=== PATIENT | female | born 1955 | race Two or more races ===

== ENCOUNTER 2025-02-17 08:50 | Inpatient (IN) | payer MEDICARE, BC ==
[2025-02-13 13:26] LABS: Hematocrit 37.1 % (36.0-46.0); Hemoglobin 12.5 g/dL (12.2-16.2); Mean Corpuscular Hemoglobin 30.2 pg (28.0-32.0); Mean Corpuscular Volume 89.5 fL (80.0-100.0); Nucleated Red Blood Cells % 0.1 %
[2025-02-13 13:32] LABS: INR 0.91 (0.9-1.15); Partial Thromboplastin Time 25.9 SEC (24.5-34.5); Prothrombin Time 9.7 sec (9.3-11.8)
[2025-02-13 13:38] LABS: Alanine Aminotransferase 13 U/L (7-40); Albumin 4.4 g/dL (3.2-4.8); Alkaline Phosphatase 55 U/L (46-116); Anion Gap 16 (5-15); BUN/Creatinine Ratio 17.2 (10.0-20.0); Glucose 75 mg/dL (74-106); Potassium 4.7 mmol/L (3.5-5.1); Sodium 141 mmol/L (136-145); Total Protein 7.3 g/dL (5.7-8.2)
[2025-02-13 13:42] LABS: Bilirubin, Total 0.2 mg/dL (0.2-1.0); Blood Urea Nitrogen 31 mg/dL (9-23); Calcium 10.6 mg/dL (8.7-10.4); Carbon Dioxide 16 mmol/L (20-31); Chloride 109 mmol/L (98-107)
[2025-02-13 14:44] LABS: Urine Protein, UAD Negative (Negative)
[~2025-02-17] VITALS: Ht 162.6 cm; Wt 114.5 kg
[~2025-02-17 08:50] MED LIST: ASPI81CH59 PO; GLIP10TA9 PO; HYDR50TA47 PO; INSLANTI SC; INSLISPI SC; LATA0.008 EACHEYE; LEVO-848 PO; LOSA-534 PO; METF-372 PO; METO-289 PO; OMEP20TA PO; TRIA50CA43 PO
--- NOTE | 2025-02-17 11:16 | DVHHP2 ---
Admitting Diagnosis: lumbar spinal stenosis with neurogenic claudication History of Present Illness Home Meds Reported Medications Latanoprost (LATANOPROST) 0.005 % Desirae, 1 DROP EACHEYE QPM, #2.5 ML 3 Refills 02/13/25 Levothyroxine Sodium (SYNTHROID TABLET) 50 Mcg Tb, 75 MCG PO DAILY, TAB 02/13/25 Triamterene (Triamterene) 50 Mg Cap, 50 MG PO DAILY, CAP 02/13/25 Metoprolol Succinate (Metoprolol Succinate Er) 50 Mg Tab, 100 MG PO DAILY, TAB 02/13/25 Hydralazine Hcl (Hydralazine Hcl) 50 Mg Tab, 25 MG PO BID, TAB 02/13/25 Losartan Potassium (Losartan Potassium) 50 Mg Tab, 1 TAB PO DAILY, #90 TAB 3 Refills 02/13/25 Glipizide (Glipizide) 10 Mg Tab, 1 TAB PO BID, #180 TAB 3 Refills 02/13/25 Metformin Hydrochloride (Metformin Hcl) 1,000 Mg Tab, 1 TAB PO BID, #180 TAB 3 Refills 02/13/25 Insulin Glargine (Lantus) 100 Unit/Ml Inj, 100 UNIT SC DAILY, INJ 02/13/25 Insulin Lispro (Human) (Humalog) 100 Unit/Ml Inj, 100 UNIT SC BID, INJ 02/13/25 Omeprazole (Gnp Omeprazole) 20 Mg Tab, 1 TAB PO DAILY, #90 TAB 3 Refills 02/13/25 Aspirin (Aspirin Low Dose) 81 Mg Chw, 1 TAB PO DAILY, #90 TAB 3 Refills 02/13/25 Timing/Duration of Back Pain: Constant Quality of Back Pain: Aching, Burning, Cramping, Dullness Back Pain Location: Lumbar spine Back Pain Radiation: Feet, Lower legs Method of Injury/Prior Factors: Unknown Modifying Factors for Back Trupti: Movement Associated Symptoms of Back Pa: Sensory loss, Motor loss Review of Systems Ears, Nose, & Throat: No symptom reported Eyes: No symptom reported Pulmonary/Respiratory: No symptom reported Cardiovascular: No symptom reported Gastrointestinal: No symptom reported Genitourinary: No symptom reported Musculoskeletal: Back pain, Joint pain, Muscle pain Skin: No symptom reported Psychiatric: No symptom reported Endocrine: No symptom reported Hemotologic/Lymphatic: No symptom reported H&P Exam General Appeara: Well developed, Well nourished, Normal Appearance Head Exam: Normal inspection Neck Exam: Normal inspection, Non-tender, Normal alignment Eye Exam: bilateral eye Normal inspection, bilateral eye PERRL, bilateral eye EOMI Ear Exam: bilateral ear Auricle normal, bilateral ear Canal normal, bilateral ear TM normal Nasal Exam: Normal inspection Mouth: Normal Inspection Pulmonary/Respiratory: Normal inspection, Normal breath sounds, Chest non- tender, Lungs clear Cardiovascular/Chest: Normal inspection, Regular rate, Normal Rhythm Abdominal Exam: Normal bowel sounds Rectal Exam: Deferred Back Exam: Decreased range of motion, Muscle spasm, Vertebral tenderness Pelvic Exam: Not done Male Genital Exam: Not done Shoulder Exam: Normal inspection, Non-tender, Normal ROM Elbow/Forearm Exam: Normal inspection, Non-tender, Normal ROM Wrist Exam: Normal inspection, Non-tender, Normal ROM Hand Exam: Normal inspection, Non-tender, Normal ROM Hip exam: Normal inspection, Non-tender, Normal range of motion Legs: bilateral leg non-tender, bilateral leg normal inspection, bilateral leg normal range of motion, bilateral leg no evidence of injury Knees: bilateral knee non-tender, bilateral knee normal inspection, bilateral knee normal range of motion, bilateral knee no evidence of injury Ankle Exam: bilateral ankle Normal inspection, bilateral ankle Non-tender, bilateral ankle Normal range of motion, bilateral ankle No evidence of injury Foot: bilateral foot non-tender, bilateral foot normal inspection, bilateral foot normal range of motion, bilateral foot no evidence of injury Tendon/ Neuro: Motor deficit, Sensory deficit MANAGER MERCHANDISE Exam: Normal hearing, Normal speech, PERRL Motor/Sensory: Sensory deficit, Weak motor strength RLE, Weak motor strength LLE Deep Tendon Ref: All intact Neuro/Mental St: Alert, Oriented Appearance: Appropriate appearance, Appropriate insight Eye contact/ Speech: Cooperative, Good eye contact, Normal speech Coordination/Gait: Abnormal gait Skin Exam: Normal inspection, Normal color, Warm/dry Lymphatic: Normal inspection Labs/Xrays Labs Test 02/13/25 14:37 02/13/25 12:59 Range/Units Urine Color Colorless Yellow Urine Clarity Clear Clear Urine pH 5.5 5.0-9.0 Urine Specific Mercer 1.008 1.001-1.035 Urine Protein Negative Negative Urine Ketones Negative Negative Urine Blood Negative Negative /uL Urine Nitrite Negative Negative Urine Bilirubin Negative Negative Urine Urobilinogen Normal Negative mg/dL Urine Leukocyte Esterase Negative Negative /uL Urine RBC <1 0 - 4 /hpf Urine Microscopic WBC < 1 0-5 /HPF Urine Squamous Epithelial Cells None seen <5 /hpf Urine Bacteria None seen None Seen /hpf Urine Glucose Normal Normal mg/dL White Blood Count 8.1 4.4-10.8 10^3/uL Red Blood Count 4.14 4.0-5.20 10^6/uL Hemoglobin 12.5 12.2-16.2 g/dL Hematocrit 37.1 36.0-46.0 % Mean Corpuscular Volume 89.5 80.0-100.0 fL Mean Corpuscular Hemoglobin 30.2 28.0-32.0 pg Mean Corpuscular Hemoglobin Concent 33.7 32.0-36.0 g/dL Red Cell Distribution Width 14.8 H 11.8-14.3 % Platelet Count 356 140-450 10^3/uL Mean Platelet Volume 8.9 6.9-10.8 fL Neutrophils (%) (Auto) 70.4 37.0-80.0 % Lymphocytes (%) (Auto) 21.1 10.0-50.0 % Monocytes (%) (Auto) 6.5 0.0-12.0 % Eosinophils (%) (Auto) 1.4 0.0-7.0 % Basophils (%) (Auto) 0.6 0.0-2.0 % Neutrophils # (Auto) 5.7 1.6-8.6 10 ^3/uL Lymphocytes # (Auto) 1.7 0.4-5.4 10 ^3/uL Monocytes # (Auto) 0.5 0-1.3 10 ^3/uL Eosinophils # (Auto) 0.1 0-0.8 10 ^3/uL Basophils # (Auto) 0.1 0-0.2 10 ^3/uL Nucleated Red Blood Cells 0.1 % Prothrombin Time 9.7 9.3-11.8 sec Prothrombin Time INR 0.91 0.9-1.15 Activated Partial Thromboplast Time 25.9 24.5-34.5 SEC Sodium Level 141 136-145 mmol/L Potassium Level 4.7 3.5-5.1 mmol/L Chloride Level 109 H 98-107 mmol/L Carbon Dioxide Level 16 L 20-31 mmol/L Anion Gap 16 H 5-15 Blood Urea Nitrogen 31 H 9-23 mg/dL Creatinine 1.80 H 0.550-1.02 mg/dL Glomerular Filtration Rate Calc 30 >90 mL/min BUN/Creatinine Ratio 17.2 10.0-20.0 Serum Glucose 75 74-106 mg/dL Calcium Level 10.6 H 8.7-10.4 mg/dL Total Bilirubin 0.2 0.2-1.0 mg/dL Aspartate Amino Transferase (AST) 16 13-40 U/L Alanine Aminotransferase (ALT) 13 7-40 U/L Alkaline Phosphatase 55 46-116 U/L Total Protein 7.3 5.7-8.2 g/dL Albumin 4.4 3.2-4.8 g/dL Assessment/Plan Primary Diagnosis lumbar spinal stenosis with severe neurogenic claudication Plan admit for elective lumbar spine surgery Plan discussed with: Patient BETTY LUGO MD Feb 17, 2025 11:16
[2025-02-17] MEDS ORDERED: fentaNYL CITRATE 100 MCG/2 ML VL ONE (12:28)
[2025-02-17] MEDS ORDERED: PROPOFOL 10 MG/ML 20 ML IV ONE ×2 (12:28→13:40)
[2025-02-17] MEDS ORDERED: MIDAZOLAM HCL 2MG/2ML 2ml VIAL (1mg/ml) ONE (12:28)
[2025-02-17] MEDS ORDERED: ROCURONIUM 10MG/ML 10ML VIAL IV ONE (12:28)
[2025-02-17] MEDS ORDERED: ONDANSETRON HCL 4 MG/2 ML VIAL ONE (12:36)
[2025-02-17] MEDS ORDERED: METOCLOPRAMIDE HCL 5MG/ml INJ 2ml VIAL ONE (12:36)
[2025-02-17] MEDS ORDERED: fentaNYL CITRATE 5 ML ONE (13:36)
[2025-02-17] MEDS ORDERED: HYDROmorphone HCL 2 MG/ML VL/or syr ONE (16:00)
[2025-02-17] MEDS ORDERED: MORPHINE SULFATE INJ 2 MG/ml SYRG IV PRN (16:15)
[2025-02-17] MEDS ORDERED: ACETAMINOPHEN 325 MG TAB PO PRN (16:15)
[2025-02-17] MEDS ORDERED: NITROGLYCERIN 0.4 MG SL TAB SL PRN (16:15)
--- NOTE | 2025-02-17 16:27 | DVHOP2 ---
Operative Report - 2 Report Details Date: 02/17/25 Preop Diagnosis: Post laminectomy syndrome lumbar spine wiwth severe lumbar spinal stenosis/retained spinal hardware Postop Diagnosis: same as pre op Surgeon: Maximino Taylor MD Oil Producer: Flro Hickman NP Anesthesiologist: Keesha Edwards NP Anesthesia: General Consent: The patient was informed of the risks and benefits of the procedure. These include but are not limited to complications of anesthesia, postoperative infection, incomplete relief of symptoms, recurrence of symptoms, damage to blood vessels, nerves and tendons, deep venous thrombosis, pulmonary embolism and possible need for repeat surgery in the future. Name of Procedure Performed see detailed note Procedure Details Procedure Details: Pre-op Diagnosis: 1. 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 Severe Lumbar 3/4 central canal stenosis with low back pain and incapacitating neurogenic claudication 3. Retained deep painful hardware lumbar spine Post-op Diagnosis: same as pre-op Procedure: Revision lumbar 5 laminotomies/foraminotomies/facetectomies to decompress central canal and lumbar 5 nerve roots bilaterally Revision lumbar 4 laminotomies, foraminotomies/facetectomies to decompress central canal and lumbar 4 nerve roots bilaterally lumbar 3 laminectomy with foraminotomies and facetectomies to decompress central canal and bilateral lumbar 3 nerve roots Lumbar 3 to 4 posterior spinal interbody fusion with PEEK cage. Lumbar 3 to 4 posterior spinal intertransverse fusion with bone graft Lumbar 3 to 4 posterior spinal instrumentation with pedicle screws Autograft bone for fusion Allograft bone to augment fusion Demineralized bone matrix to augment fusion Microscope for microdissection Removal of Deep spinal hardware lumbar spine Exploration of prior lumbar fusion Surgeon: Dr. Taylor Assist: Flor Hickman NP Anesthesia: General Fluids and EBL: See anesthesia note The patient was seen in the pre-anesthesia care unit (PACU), and I initialed the operative site. All questions were answered to the patients satisfaction, and the chart was reviewed. The patient was taken to the operative room, where pre- operative antibiotics were given 30 minutes before incision. General anesthesia was induced, and neuro-monitoring leads were placed. A Khan catheter was placed. The patient was turned prone onto the [facility] spinal table. While positioning, I ensured that the belly was free to allow proper expansion of the lungs. The hips were extended, and all bony prominences padded. The shoulders were abducted 80 degrees, and the elbows flexed 100 degrees with no tension on the brachial plexus. I checked the foot arterial pulses, and they were palpable. The old surgical scar was marked with a marker before prepping and draping. The patient was prepped and draped, and time out was taken at this time per usual protocol. At this time, the C-arm fluoroscope was brought in and was used to maninder the incision borders proximally and distally. I used the prior lumbar incision as a guide and extended proximally and distally as required per the marking determined from the fluoroscopy Using a Number 10 Blade, an incision was made extending it proximally and dist ally per C arm maninder from the posterior spinous process of the lumbar three down to lumbar 5, down to the lumbo-dorsal fascia. All bleeding was controlled with electrocautery. Self-retaining retractors were placed. The bleeding was not excessive considering it was a revision case. Electrocautery was then used to take down the lumbo-dorsal fascia to free the muscle off the bone bilaterally where the tissue was virgin. A Dashawn retractor was placed over the posterior spinous process proximally, and a lateral C-arm fluoroscope image was taken to ensure we were at the correct level. Next, dissection through the prior surgical site was started at virgin tissue, and the deep back muscles were taken down as deep as possible while avoiding getting too close to the dura and avoiding being too shallow to cause nerve injury and bleeding. Next, using bovie electrocautery, The deep fascia laterally to the facet joints was removed to expose the transverse processes of lumbar 3, 4, and 5 while taking care to avoid injuring the facet capsule at the proximal end of the incision. Next the prior bilateral lumbar 4/5 pedicle screw construct was exposed. The screws were removed without difficulty with universal hardware removal set. Care had to be taken during the xposure to remove the cross link to avid causing damage to the dur Next, the microscope was bought in for visualization, and using a Luxell rongeur, the posterior spinous process of lumbar three and remnants of lumbar 4 and 5 were removed, and the bone was saved for use as local autograft. I used alternating Kerison 2 mm and 3 mm rongeurs to perform lumbar 3,4 and 5 and bilateral laminotomies, foraminotomies and facetectomies to revise the decompression of the central canal and lateral recesses and foramen to decompre ss the bilateral lumbar 3,4,5 nerve roots and central canal. Next, using alternating Kerison 2mm and 3 mm rongeurs, the superior articular facets of lumbar three were removed bilaterally at the virgin dissection to decompress the lateral recess (facetectomies) and then extended proximally to decompress the foramen bilaterally (foraminotomies). Next, carefully, straight and curved curettes were used to free up the dura from residual lamina left from the prior surgeries, and version 2mm and 3 mm longueurs removed the remaining lamina (revision laminotomies). the prior surgery attempted david-laminectomies on the left Lumbar 4 and laminae, and this is where severe post-op epidural fibrosis was noted and had to be dealt with. the central canal stenosis was severe at the L4/5 level from the large superior articular facet making the medial lateral space narrow, the left over ligamentum flavum which was narrowing the anterior posterior plane. The same situation was seen at the L5 lamina. Therefore, the superior facets of L4 and 5 bilaterally were removed as was the residual ligamentum flavum removed very carefully to avoid damage to the neural structures. Everything went as planned and we were able to successfully decompress the L4/5 level which were severely stenosed prior to the surgery . Next, the 2mm and 3mm Kerison rongeurs a second time were used to undercut the supra-articular facets and widened the foramina in the lumbar 4 and 5 levels. I used a ball-tipped nerve probe to ensure that the respective nerve roots were able to be mobilized 5mm in each direction and were unimpeded in the lateral recess and foramen. Next, I carefully inspected the dura to make sure no durotomy was visible, and it was not. This decompression was very tedious and dangerous due to the fibrosis. I covered the exposed dura with gel foam soaked in thrombin, and the microscope was wheeled away from the operative field. The C-arm fluoroscope was brought in, and perfect AP views of the lumbar 3 and 4 pedicles were obtained. I placed bilateral pedicle screws at this level by: using a Lenke awl to make a car pilot hole, then a ball tip robe to make sure there was no pedicle breach, then a tap to prepare the track, and a 6.5 mm diameter 45 mm length pedicle screw at L3 and 6.5 X50 at L4 This step to place bilateral pedicle screws was repeated up to the lumbar 3, 4, levels. Next, the c-arm fluoroscope took an AP and lateral x-ray to ensure proper placement of the pedicle screws. Next, I retracted the right lumbar 4 nerve medially and used increasing size juancarlos until the proper tension achieved and placed a [id number] PEEK cage at the L3/4 level. Next, the neuro-stimulation probe was placed over the tip of each screw, and each screw was stimulated only after a current greater than 10 mA was delivered to the screw. Next, I took a Midas Jaya Drill to decorticate the transverse process, which was exposed, and local bone graft, allograft bone substitute, and Demineralized bone matrix were placed along the intertransverse process intervals bilaterally (the fusion bed). Next, a curved qasim sized to fit the pedicle screw interval was placed and secured to each pedicle screw using set screws, The set screws were tightened using a torque screwdriver (set to 10 N*M torque) to secure the qasim to the pedicle screws bilaterally. Final AP and lateral C arm fluoroscopic films were taken at this time. Next, a 10-Scottish diameter Hemovac drain was laced deep to the lumbo-dorsal fascia. The lumbo- dorsal fascia was closed with interrupted 0-Vicryl sutures. The subcutaneous tissue was closed with interrupted 2-0 Vicryl sutures. The skin was closed with a 2-0 nylon subcuticular suture. Sterile dressings were placed. The pt. was turned supine onto the stretcher, extubated, and taken to the recovery room in stable condition. Condition Stable Disposition Still a Patient MAXIMINO TAYLOR MD Feb 17, 2025 16:27
[2025-02-17 16:43] VITALS: PULSE 95; RESP 12; O2SAT 98
[2025-02-17] MEDS: ACETAMINOPHEN IV 1000 MG/100ML (10MG/ML) IV ONE (16:54)
[2025-02-17] MEDS ORDERED: HYDROmorphone HCL 2 MG/ML VL/or syr IV PRN (17:00)
[2025-02-17] MEDS: ONDANSETRON HCL 4 MG/2 ML VIAL IV PRN (17:10)
[2025-02-17 17:45] VITALS: PULSE 95; RESP 16; O2SAT 95
--- NOTE | 2025-02-17 18:28 | DVH ---
Indication: FUSION AND DISCECTOMY Technique: XY LUMBAR SPINE 3 VIEWXY Comparison: None FINDINGS/IMPRESSION: Intraoperative radiographs for Posterior intrapedicular fixation at approximately L3/L4 with interbod y disc spacer.
[2025-02-17 18:50] VITALS: BP 128/63; PULSE 105; RESP 17; TEMP 97.8; O2SAT 98
--- NOTE | 2025-02-17 18:51 | DVH ---
C-ARM FLUOROSCOPY: PROCEDURE: Lumbar spine procedure FLUOROSCOPY TIME: 62.7 seconds DAP: 53.5 mgy FINDINGS: Spot intraoperative C arm radiographs demonstrating lumbar spine procedure. IMPRESSION: 1. Intraoperative radiographs for Posterior intrapedicular fixation at approximately L3/L4 with inter body disc spacer.
[2025-02-17 19:01] VITALS: PULSE 88; RESP 20; O2SAT 98
[2025-02-17] MEDS: D5W/SOD CHLO 0.9% 1,000 ML IV SCH (19:04)
[2025-02-17] MEDS: ceFAZolin 2 GM/D5W50ml 50 ML IV ONE (19:05)
[2025-02-17] MEDS: TRANEXAMIC ACID 20 ML ONE (19:05)
[2025-02-17] MEDS: KETOROLAC TROMETH 30 MG/ML 1ML VIAL IV ONE (19:05)
[2025-02-17] MEDS: SUCCINYLCHOLINE CHLORIDE 20 MG/ML 10ML VIAL IV ONE (19:05)
[2025-02-17] MEDS: ONDANSETRON HCL 4 MG/2 ML VIAL ONE (19:05)
[2025-02-17] MEDS: PNEUMOCOCCAL VACC POLYS 25 MCG/0.5 ML VIAL IM ONE (19:45)
[2025-02-17 20:00] VITALS: PULSE 102; PULSE 104; RESP 17; O2SAT 97
[2025-02-17 21:00] VITALS: BP 135/63; PULSE 104; RESP 17; TEMP 97.9; O2SAT 97
[2025-02-17] MEDS ORDERED: DEXTROSE (50%) 50ML SYRG IV PRN ×2 (21:15→22:00)
[2025-02-17] MEDS: CYCLOBENZAPRINE HCL 10 MG TAB PO SCH (21:45)
[2025-02-17] MEDS: DOCUSATE SOD 100 MG CAP PO SCH (21:45)
[2025-02-17] MEDS: InsuLIN REG 1unit/0.01ml Soln (100units/ml) SC SCH (21:48)
[2025-02-17] MEDS: ceFAZolin 1GM/50ML 50 ML IV SCH (21:49)
[2025-02-17] MEDS: ACCU-CHEK COMFORT CURVE STRIP VI SCH (21:55)
[2025-02-17] MEDS: HYDROcodone-ACET 10/325MG TAB PO PRN (23:32)
[2025-02-18] VITALS (7 sets, daily range): BP systolic 122–154; BP diastolic 65–72; PULSE 80–114; RESP 17–19; TEMP 97.8–98.5; O2SAT 92–99
[2025-02-18] MEDS ORDERED: ACCU-CHEK COMFORT CURVE STRIP VI SCH
[2025-02-18] MEDS ORDERED: DEXTROSE (50%) 50ML SYRG IV PRN (02:00)
[2025-02-18] MEDS: ACCU-CHEK COMFORT CURVE STRIP VI SCH (04:00)
[2025-02-18] MEDS: InsuLIN REG 1unit/0.01ml Soln (100units/ml) SC SCH (04:14)
[2025-02-18] MEDS ORDERED: InsuLIN REG 1unit/0.01ml Soln (100units/ml) SC SCH ×2 (07:00)
[2025-02-18 08:35] LABS: Hematocrit 30.2 % (36.0-46.0); Hemoglobin 9.8 g/dL (12.2-16.2); Mean Corpuscular Hemoglobin 29.8 pg (28.0-32.0); Mean Corpuscular Volume 91.5 fL (80.0-100.0); Nucleated Red Blood Cells % 0.1 %
[2025-02-18 08:44] LABS: Chloride 101 mmol/L (98-107); Potassium 4.6 mmol/L (3.5-5.1)
[2025-02-18 08:45] LABS: Anion Gap 12 (5-15); Carbon Dioxide 20 mmol/L (20-31)
[2025-02-18 08:50] LABS: BUN/Creatinine Ratio 16.0 (10.0-20.0)
[2025-02-18 09:08] LABS: Blood Urea Nitrogen 29 mg/dL (9-23); Calcium 8.6 mg/dL (8.7-10.4); Sodium 133 mmol/L (136-145)
[2025-02-18 09:09] LABS: Glucose 471 mg/dL (74-106)
[2025-02-18] MEDS: TRIAMTERENE/HCTZ 37.5/25 MG CAP/TAB PO SCH (10:00)
--- NOTE | 2025-02-18 10:22 | DVHINCON2 ---
Date of service: Feb 18, 2025 History of Present Illness HPI Patient is a 69-year-old female who came to hospital for elective lumbar laminectomy. Orthopedics has performed a laminectomy and the patient is being managed on tele floor. Cardiology is involved for cardiac aspects of care. Patient is known to our practice from outside and before. Home Meds Reported Medications Latanoprost (LATANOPROST) 0.005 % Desirae, 1 DROP EACHEYE QPM, #2.5 ML 3 Refills 02/13/25 Levothyroxine Sodium (SYNTHROID TABLET) 50 Mcg Tb, 75 MCG PO DAILY, TAB 02/13/25 Triamterene (Triamterene) 50 Mg Cap, 50 MG PO DAILY, CAP 02/13/25 Metoprolol Succinate (Metoprolol Succinate Er) 50 Mg Tab, 100 MG PO DAILY, TAB 02/13/25 Hydralazine Hcl (Hydralazine Hcl) 50 Mg Tab, 25 MG PO BID, TAB 02/13/25 Losartan Potassium (Losartan Potassium) 50 Mg Tab, 1 TAB PO DAILY, #90 TAB 3 Refills 02/13/25 Glipizide (Glipizide) 10 Mg Tab, 1 TAB PO BID, #180 TAB 3 Refills 02/13/25 Metformin Hydrochloride (Metformin Hcl) 1,000 Mg Tab, 1 TAB PO BID, #180 TAB 3 Refills 02/13/25 Insulin Glargine (Lantus) 100 Unit/Ml Inj, 100 UNIT SC DAILY, INJ 02/13/25 Insulin Lispro (Human) (Humalog) 100 Unit/Ml Inj, 100 UNIT SC BID, INJ 02/13/25 Omeprazole (Gnp Omeprazole) 20 Mg Tab, 1 TAB PO DAILY, #90 TAB 3 Refills 02/13/25 Aspirin (Aspirin Low Dose) 81 Mg Chw, 1 TAB PO DAILY, #90 TAB 3 Refills 02/13/25 Past Medical History Others Past medical history includes obesity, diabetes mellitus, hypertension, hyperlipidemia, hypothyroidism, low back pain, osteopenia/osteoporosis, GERD, glaucoma, CKD (goes to Nephrology/Dr. De La Torre regularly) and history of left breast cancer in 1998 (status post chemotherapy/radiation therapy) Patient Family History: Chronic obstructive pulmonary disease G8 FATHER G8 BROTHER Diabetes mellitus G8 MOTHER FH: cancer G8 SISTER FH: emphysema G8 FATHER FH: kidney disease Glaucoma G8 BROTHER Hypertension G8 MOTHER Smoker: No Hx (Negative) Alocohol: None Review of Systems Constitutional: No symptom reported Ears, Nose, & Throat: No symptom reported Eyes: No symptom reported All Other Systems Fourteen point review of system was performed. Relevant findings as per above and as per HPI. Otherwise negative. H&P Exam Vital Signs Vital Signs Date Time Temp Pulse Resp B/P (MAP) Pulse Ox O2 Delivery O2 Flow Rate FiO2 02/18/25 09:06 98.5 109 19 135/67 (89) 92 98.5 02/17/25 20:00 Nasal Cannula* 2 28 General Appeara: Well developed, Obese Head Exam: Normal inspection Neck Exam: Normal inspection Eye Exam: bilateral eye PERRL Mouth: Normal Inspection Pulmonary/Respiratory: Lungs clear Cardiovascular/Chest: Regular rate Peripheral Pulses: 2+ carotid (R), 2+ carotid (L), 2+ femoral (R), 2+ femoral (L) Abdominal Exam: Normal bowel sounds, Soft, No hepatospenomegaly Neuro/Mental St: Alert, Oriented Appearance: Appropriate appearance Eye contact/ Speech: Cooperative Labs/Xrays Labs Test 02/18/25 08:22 02/18/25 08:13 02/17/25 19:55 02/13/25 14:37 Range/Units POC Glucose 391 H 70-106 mg/dl White Blood Count 9.1 4.4-10.8 10^3/uL Red Blood Count 3.30 L 4.0-5.20 10^6/uL Hemoglobin 9.8 #L 12.2-16.2 g/dL Hematocrit 30.2 #L 36.0-46.0 % Mean Corpuscular Volume 91.5 80.0-100.0 fL Mean Corpuscular Hemoglobin 29.8 28.0-32.0 pg Mean Corpuscular Hemoglobin Concent 32.5 32.0-36.0 g/dL Red Cell Distribution Width 15.0 H 11.8-14.3 % Platelet Count 276 140-450 10^3/uL Mean Platelet Volume 8.7 6.9-10.8 fL Neutrophils (%) (Auto) 83.1 H 37.0-80.0 % Lymphocytes (%) (Auto) 8.2 L 10.0-50.0 % Monocytes (%) (Auto) 8.0 0.0-12.0 % Eosinophils (%) (Auto) 0.0 0.0-7.0 % Basophils (%) (Auto) 0.7 0.0-2.0 % Neutrophils # (Auto) 7.5 1.6-8.6 10 ^3/uL Lymphocytes # (Auto) 0.7 0.4-5.4 10 ^3/uL Monocytes # (Auto) 0.7 0-1.3 10 ^3/uL Eosinophils # (Auto) 0 0-0.8 10 ^3/uL Basophils # (Auto) 0.1 0-0.2 10 ^3/uL Nucleated Red Blood Cells 0.1 % Sodium Level 133 #L 136-145 mmol/L Potassium Level 4.6 3.5-5.1 mmol/L Chloride Level 101 98-107 mmol/L Carbon Dioxide Level 20 20-31 mmol/L Anion Gap 12 5-15 Blood Urea Nitrogen 29 H 9-23 mg/dL Creatinine 1.81 H 0.550-1.02 mg/dL Glomerular Filtration Rate Calc 30 >90 mL/min BUN/Creatinine Ratio 16.0 10.0-20.0 Serum Glucose 471 *H 74-106 mg/dL Calcium Level 8.6 L 8.7-10.4 mg/dL Urine Color Colorless Yellow Urine Clarity Clear Clear Urine pH 5.5 5.0-9.0 Urine Specific [place] 1.008 1.001-1.035 Urine Protein Negative Negative Urine Ketones Negative Negative Urine Blood Negative Negative /uL Urine Nitrite Negative Negative Urine Bilirubin Negative Negative Urine Urobilinogen Normal Negative mg/dL Urine Leukocyte Esterase Negative Negative /uL Urine RBC <1 0 - 4 /hpf Urine Microscopic WBC < 1 0-5 /HPF Urine Squamous Epithelial Cells None seen <5 /hpf Urine Bacteria None seen None Seen /hpf Urine Glucose Normal Normal mg/dL Test 02/13/25 12:59 Range/Units Prothrombin Time 9.7 9.3-11.8 sec Prothrombin Time INR 0.91 0.9-1.15 Activated Partial Thromboplast Time 25.9 24.5-34.5 SEC Total Bilirubin 0.2 0.2-1.0 mg/dL Aspartate Amino Transferase (AST) 16 13-40 U/L Alanine Aminotransferase (ALT) 13 7-40 U/L Alkaline Phosphatase 55 46-116 U/L Total Protein 7.3 5.7-8.2 g/dL Albumin 4.4 3.2-4.8 g/dL Assessment/Plan Plan Patient is a 69-year-old female who came to hospital for elective lumbar laminectomy. Orthopedics has performed a laminectomy and the patient is being managed on tele floor. Cardiology is involved for cardiac aspects of care. Patient is known to our practice from outside and before. Not in acute distress. Lying flat in bed. No JVD. Obese. No carotid bruit. Mucosa is pink and wet. Not using accessory muscles of breathing. Lungs are clear to auscultation. Cardiac: Regular, no thrill/gallop. Abdomen is soft. There is no mass. Bowel sound is positive. Nontender. Extremities do not reveal edema. Dorsalis pedis is 2+ bilateral Past medical history includes obesity, diabetes mellitus, hypertension, hyperlipidemia, hypothyroidism, low back pain, osteopenia/osteoporosis, GERD, glaucoma, CKD (goes to Nephrology/Dr. De La Torre regularly) and history of left breast cancer in 1998 (status post chemotherapy/radiation therapy) Echocardiogram of January 2025 (performed in [facility]) was poor quality and left ventricular systolic function could not be completely evaluated. There was no aortic stenosis Echocardiogram of December 2023 (performed in the office) revealed preserved left ventricular systolic function and no valvular disease. Hemoglobin: 12.5 Creatinine: 1.8 Potassium: 4.7 Patient is a obese female who presented for elective lumbar laminectomy (performed). Does have above comorbidities. Hemodynamically is stable. Does have baseline history of CKD for which follows with Nephrology regularly Status post lumbar laminectomy Diabetes mellitus Obesity, morbid Hypertension Hyperlipidemia CKD Hypothyroidism Lumbar stenosis Cardiac suggestion for management: Manage on tele Follow-up electrolytes and kidney function tests and correct abnormalities. Echocardiogram is advised Follow-up by Orthopedics Rehab evaluation and follow-up Thank you for consultation Further evaluation and management depends on the above and clinical course A total of 75 minutes was spent reviewing the patient record, examining the patient, making a diagnostic and therapeutic plan, discussing this plan with medical personnel, following up on diagnostic studies and following the patient for clinical stability excluding any and all procedures. At least 50% of this time was spent in direct, [id number] contact. Thank you for allowing me to participate in this patient's care. Further recommendations will depend on patient's clinical course. Please do not hesitate to contact me if you have any questions or concerns. This medical document was created using electronic medical record system with [employer] computerized dictation system. Although this document has been carefully reviewed, there may still be some phonetic and typographical errors. These areas are purely typographical due to the imperfection of the software programs, and do not reflect any compromise in the patient's medical care. Plan discussed with: Patient, Other (nurse) THOR HAMLIN MD Feb 18, 2025 10:22
--- NOTE | 2025-02-18 10:29 | DVHPN2 ---
Progress Note - Surgical Date Seen: Feb 18, 2025 Post op day Post op day: 1 Subjective Patient reports: No new complaints, Feels better Review of Systems: NEURO:Abnormal (LBP radiation down both legs to the feet ) Objective Vital signs Vital Sign Date Time Temp Pulse Resp B/P (MAP) Pulse Ox O2 Delivery O2 Flow Rate FiO2 02/18/25 09:06 98.5 109 19 135/67 (89) 92 98.5 02/17/25 20:00 Nasal Cannula* 2 28 Total Intake and Output 02/17/25 02/17/25 02/18/25 15:00 23:00 07:00 Intake Total 110 ml 50 ml 900 ml Balance 110 ml 50 ml 900 ml Medications Current Medications Medications Dose Ordered Sig/Diann Route Start Time Stop Time Status Last Admin Dose Admin Ondansetron HCl 4 mg Q4HP PRN IV 02/17/25 16:15 Acetaminophen 650 mg Q6HP PRN PO 02/17/25 16:15 Acetaminophen/ Hydrocodone Bitart 1 tab Q6HP PRN PO 02/17/25 16:15 02/18/25 08:46 1 TAB Morphine Sulfate 1 mg Q4HP PRN IV 02/17/25 16:15 Cyclobenzaprine HCl 10 mg TID PO 02/17/25 22:00 02/18/25 05:47 10 MG Docusate Sodium 100 mg BID PO 02/17/25 22:00 02/18/25 08:44 100 MG Cefazolin Sodium 50 ml @ 100 mls/hr Q8HR IV 02/17/25 22:00 02/19/25 14:29 02/18/25 05:44 100 MLS/HR Nitroglycerin 0.4 mg Q5MINP PRN SL 02/17/25 16:15 Morphine Sulfate 2 mg Q30M PRN IV 02/17/25 16:15 Diagnostic Test (Pha) 1 strip IQ4HR 02/18/25 04:00 02/18/25 08:54 1 STRIP Insulin Human Regular IQ4HR SC 02/18/25 04:00 02/18/25 08:53 15 UNITS Dextrose 50 ml UD PRN IV 02/18/25 02:00 Hydralazine HCl 25 mg Q12HR PO 02/18/25 10:00 Losartan Potassium 50 mg DAILY PO 02/18/25 10:00 Metoprolol Succinate 100 mg DAILY PO 02/18/25 10:00 Famotidine 20 mg DAILY PO 02/18/25 10:00 Triamterene/HCTZ 2 cap DAILY PO 02/18/25 10:00 Levothyroxine Sodium 50 mcg QAM@0600 PO 02/19/25 06:00 Insulin Glargine 40 units HS SC 02/18/25 22:00 UNV Laboratory Laboratory Tests 02/18/25 08:13 Test 02/18/25 08:13 Range/Units Serum Glucose 471 *H 74-106 mg/dL Examination: GENERAL:Normal, HEENT:Normal, NECK:Normal, LUNGS:Normal, CVS:Normal, ABDOMEN:Normal, MSK:Normal, SKIN:Normal (Teofilo dressing is intact drains one into are intact), NEURO:Abnormal (Patient verbalized improvement in the pain to her lower back with radiation down to bilateral legs, patient states that her feet still feel numb.), :Normal Problem List/Assessment/Plan Problems: (1) Muscle spasm of back (2) Acute post-operative pain Assessment and Plan drain output 100 ml drain #! 10ml drain #2 0ml Patient was able to get up and ambulate with physical therapy out into the hallway with a walker Family member verbalize the patient looked more stable than she has ever in the past Patient has not had a bowel movement yet, patient is tolerating eating and drinking well Patient is experiencing expected postoperative pain to the low back well controlled with pain medication, oral minimal requirements for IV intervention We will keep the drains in another day, patient is progressing well POD # 1 -Disposition: -Pending -Discharge RX: Patient has already picked up postoperative medications -Follow up appointment: with Dr Taylor on prior scheduled appointment [id number] [facility] [address] [place] [address] -Pain: - IV pain meds post op day 1, with PO supplementation, goal is to progress weaning off IV medications and control pain with PO only. morphine 1mg q 4 hours (PAIN 7-10) - P.O. analgesics:Tylenol 650MG (PAIN 1-3) [place] 10/325 mg (PAIN 4-6) - Muscle relaxers scheduled administration. This is a beneficial medications for the incisional pain as it is mostly related to muscle spasms. Flexeril 10 mg TID - Cepacol throat lozenges as needed for sore throat -Antibiotics Operative recommendations: -Postoperative dose:-Post operative antibiotics cefazolin 1 g IV piggyback every 8 hours x 48 hours total of 6 doses -DVT PPX: -Hold all chemical DVT/ blood thinners for 14 days postoperatively -use mechanical DVT PPX such as SCD's, ambulation -Activity: -Pending PT evaluation and patients progression -Sit at side of bed for meals -Goal: Ambulate independently and safely (may use assistive devices if needed) -Medical Therapy goals: -Afebrile- Patient may develop a expected post operative fever by day 2-3, this may not be accompanied with a elevation in WBC. if fever develops: Acetaminophen for fever. Albuterol nebulizer Tx every 12 hours for 24 hours to facilitate adequate lung expansion and prevent development of atelectasis. -Euglycemic: bloods sugars under 130mmol/L for optimal healing -Normotensive: Avoid events of hypertension. This helps to keep post operative healing intact and avoids destabilization of beneficial hemostatic coagulation. -Lumbar: -If patient is comfortable encouraged the patient to lay on their side to facilitate wound healing -Drains: -Hemovac drains: These will be to full compression unless otherwise ordered. Please record and document output AND characteristic of fluid present independently EVERY 6 hours more often as needed. if there in no output indicate this by documenting 0ml. If output is greater than 100 ml in one hour of kaleb blood call provider. These drains will be removed once the drainage is at a acceptable level (generally less than 100ml in 24 hours) -Teofilo dressing: This will stay in place and will be removed at the patients follow up visit. Nursing is to assess the seal and power source. The seal should be intact and the power source should have a green flashing light indicating it is functioning well. Batteries can last up to 14 days. If a leak develops the dressing edges can be reinforced with a Tegaderm dressing to reestablish intact seal. The Teofilo dressing is NOT a wound vac. This does not get changed, it does not need home health management. -Record output independently, drain 1. Is a deep drain and drain 2. Is a superficial drain. Wound drainage is described by type, color, amount, and odor. Drainage can be 1 Serous: Clear and thin, may be present in healing healthy wound. 2 Serosanguineous containing blood may also be present and healthy healing wound 3. Sanguinous primarily blood 4. Purulent this is thick, white, and pus like. It may be indicated to give of a infection and should constitute a call to the provider immediately with the plan that the sample should be cultured. -Khan: discontinued in OR -Dressings Take care not to disrupt the TEOFILO dressing seal. If there is a break in the seal it can be trouble shot with a Tegaderm dressing. -Dressing to Hemovac drains may be changed once the drains have been removed by the provider. -Bowel management: -Colace 100mg bid -Diet: -Clear liquid diet and advance as patient tolerates within dietary limitations ( example: diabetic, Cardiac) -Incentive Spirometer: -10 x hour while awake, RN please educate and observe repeat demonstration, have IS at bedside POD #1 -X-rays: - none indicated at this time -Consults: -Physical Therapy evaluation, treatment recommendations, and discharge recommendations Call with questions Inocencia Mir [facility]- Orthopaedic Spine Surgery nurse practitioner For Dr Alin Taylor Patient was examined, chart reviewed, labs evaluated, and diagnostic studies and findings analyzed. Case was discussed with Dr. Maximino Taylor who formulated the plan of care. This medical document was created using an electronic medical record system with [employer] dictation system. Although this document has been carefully reviewed, there might still be some phonetic and typographical errors. These areas are purely typographical due to imperfections of the software programs, and do not reflect any compromise in the patient's medical care. Plan discussed with Plan discussed with: Patient, Other (Tiffany DONG extension [phone]) Visit Coding Surgery Date of Service if different f: Feb 17, 2025 Billing Provider: LUKASZ MIR NP Surgery Visit Codes: NOT BILLABLE LUKASZ MIR NP Feb 18, 2025 10:29
[2025-02-18] MEDS: METOPROLOL SUCCINATE XL 50 MG TAB PO SCH (10:40)
[2025-02-18] MEDS: FAMOTIDINE 20 MG TAB PO SCH (10:41)
[2025-02-18] MEDS: LOSARTAN POTASSIUM 50 MG TAB PO SCH (10:45)
--- NOTE | 2025-02-18 10:47 | DVHINCON2 ---
Date Seen: Feb 18, [address] LUGO Family History: Chronic obstructive pulmonary disease G8 FATHER G8 BROTHER Diabetes mellitus G8 MOTHER FH: cancer G8 SISTER FH: emphysema G8 FATHER FH: kidney disease Glaucoma G8 BROTHER Hypertension G8 MOTHER Allergies: Coded Allergies: NO KNOWN ALLERGIES (Unverified , 02/13/25) Home Meds Reported Medications Latanoprost (LATANOPROST) 0.005 % Desirae, 1 DROP EACHEYE QPM, #2.5 ML 3 Refills 02/13/25 Levothyroxine Sodium (SYNTHROID TABLET) 50 Mcg Tb, 75 MCG PO DAILY, TAB 02/13/25 Triamterene (Triamterene) 50 Mg Cap, 50 MG PO DAILY, CAP 02/13/25 Metoprolol Succinate (Metoprolol Succinate Er) 50 Mg Tab, 100 MG PO DAILY, TAB 02/13/25 Hydralazine Hcl (Hydralazine Hcl) 50 Mg Tab, 25 MG PO BID, TAB 02/13/25 Losartan Potassium (Losartan Potassium) 50 Mg Tab, 1 TAB PO DAILY, #90 TAB 3 Refills 02/13/25 Glipizide (Glipizide) 10 Mg Tab, 1 TAB PO BID, #180 TAB 3 Refills 02/13/25 Metformin Hydrochloride (Metformin Hcl) 1,000 Mg Tab, 1 TAB PO BID, #180 TAB 3 Refills 02/13/25 Insulin Glargine (Lantus) 100 Unit/Ml Inj, 100 UNIT SC DAILY, INJ 02/13/25 Insulin Lispro (Human) (Humalog) 100 Unit/Ml Inj, 100 UNIT SC BID, INJ 02/13/25 Omeprazole (Gnp Omeprazole) 20 Mg Tab, 1 TAB PO DAILY, #90 TAB 3 Refills 02/13/25 Aspirin (Aspirin Low Dose) 81 Mg Chw, 1 TAB PO DAILY, #90 TAB 3 Refills 02/13/25 Current Medications Current Medications Medications (Trade) Dose Ordered Sig/Diann Route PRN Reason Start Time Stop Time Status Last Admin Dextrose/Sodium Chloride 1,000 ml @ 100 mls/hr Q10H IV 02/17/25 16:15 02/17/25 21:57 DC 02/17/25 19:04 Ondansetron HCl (Zofran) 4 mg Q4HP PRN IV NAUSEA / VOMITING 02/17/25 16:15 Acetaminophen (Tylenol Tablet) 650 mg Q6HP PRN PO MILD PAIN (1-3 PAIN SCALE) 02/17/25 16:15 Acetaminophen/ Hydrocodone Bitart ([place] 10/325MG Tab) 1 tab Q6HP PRN PO MODERATE PAIN (4-6 PAIN SCALE) 02/17/25 16:15 02/18/25 08:46 Morphine Sulfate 1 mg Q4HP PRN IV SEVERE PAIN (7-10 PAIN SCALE) 02/17/25 16:15 Cyclobenzaprine HCl (Flexeril Tablet) 10 mg TID PO 02/17/25 22:00 02/18/25 05:47 Docusate Sodium (Colace Capsule) 100 mg BID PO 02/17/25 22:00 02/18/25 08:44 Cefazolin Sodium 50 ml @ 100 mls/hr Q8HR IV 02/17/25 22:00 02/19/25 14:29 02/18/25 05:44 Nitroglycerin (Ntrostat Sublingual) 0.4 mg Q5MINP PRN SL FOR CHEST PAIN 02/17/25 16:15 Morphine Sulfate 2 mg Q30M PRN IV FOR CHEST PAIN 02/17/25 16:15 Ondansetron HCl (Zofran) 4 mg ONCE PRN IV NAUSEA / VOMITING 02/17/25 17:00 02/17/25 17:05 DC 02/17/25 17:10 Hydromorphone HCl (Dilaudid Injection) 0.5 mg Q10M PRN IV SEVERE PAIN (7-10 PAIN SCALE) 02/17/25 17:00 02/17/25 17:41 DC Diagnostic Test (Pha) (Accu-Chek Comfort Curve T) 1 strip ACHS 02/17/25 22:00 02/17/25 21:57 DC 02/17/25 21:55 Insulin Human Regular (InsuLIN R) HS SC 02/17/25 22:00 02/17/25 21:57 DC 02/17/25 21:48 Insulin Human Regular (InsuLIN R) AC SC 02/18/25 07:00 02/17/25 22:17 DC Dextrose 50 ml UD PRN IV Blood Sugar LESS THAN 60 02/17/25 21:15 02/17/25 22:17 DC Diagnostic Test (Pha) (Accu-Chek Comfort Curve T) 1 strip Q6HR 02/18/25 00:00 02/18/25 01:50 DC Insulin Human Regular (InsuLIN R) Q6HR SC 02/18/25 00:00 02/18/25 01:50 DC Dextrose 50 ml UD PRN IV Blood Sugar LESS THAN 60 02/17/25 22:00 02/18/25 01:50 DC Diagnostic Test (Pha) (Accu-Chek Comfort Curve T) 1 strip IQ4HR 02/18/25 04:00 02/18/25 08:54 Insulin Human Regular (InsuLIN R) IQ4HR SC 02/18/25 04:00 02/18/25 08:53 Dextrose 50 ml UD PRN IV Blood Sugar LESS THAN 60 02/18/25 02:00 Hydralazine HCl (Apresoline Tablet) 25 mg Q12HR PO 02/18/25 10:00 02/18/25 10:40 Insulin Glargine (Lantus) 60 units HS SC 02/18/25 22:00 02/18/25 10:14 DC Losartan Potassium (Cozaar Tablet) 50 mg DAILY PO 02/18/25 10:00 02/18/25 10:45 Metoprolol Succinate (Toprol Xl) 100 mg DAILY PO 02/18/25 10:00 02/18/25 10:40 Famotidine (Pepcid Tablet) 20 mg DAILY PO 02/18/25 10:00 02/18/25 10:41 Triamterene/HCTZ (Dyazide 37.5/ 25MG Capsule) 2 cap DAILY PO 02/18/25 10:00 Levothyroxine Sodium (Synthroid Tablet) 50 mcg QAM@0600 PO 02/19/25 06:00 Insulin Glargine (Lantus) 40 units HS SC 02/18/25 22:00 UNV Vital Signs Vital Signs Date Time Temp Pulse Resp B/P (MAP) Pulse Ox O2 Delivery O2 Flow Rate FiO2 02/18/25 10:45 135/67 02/18/25 10:40 109 02/18/25 09:06 98.5 19 92 98.5 02/17/25 20:00 Nasal Cannula* 2 28 Labs/Diagnostic Data Labs Test 02/18/25 08:22 02/18/25 08:13 02/17/25 19:55 02/13/25 14:37 Range/Units POC Glucose 391 H 70-106 mg/dl White Blood Count 9.1 4.4-10.8 10^3/uL Red Blood Count 3.30 L 4.0-5.20 10^6/uL Hemoglobin 9.8 #L 12.2-16.2 g/dL Hematocrit 30.2 #L 36.0-46.0 % Mean Corpuscular Volume 91.5 80.0-100.0 fL Mean Corpuscular Hemoglobin 29.8 28.0-32.0 pg Mean Corpuscular Hemoglobin Concent 32.5 32.0-36.0 g/dL Red Cell Distribution Width 15.0 H 11.8-14.3 % Platelet Count 276 140-450 10^3/uL Mean Platelet Volume 8.7 6.9-10.8 fL Neutrophils (%) (Auto) 83.1 H 37.0-80.0 % Lymphocytes (%) (Auto) 8.2 L 10.0-50.0 % Monocytes (%) (Auto) 8.0 0.0-12.0 % Eosinophils (%) (Auto) 0.0 0.0-7.0 % Basophils (%) (Auto) 0.7 0.0-2.0 % Neutrophils # (Auto) 7.5 1.6-8.6 10 ^3/uL Lymphocytes # (Auto) 0.7 0.4-5.4 10 ^3/uL Monocytes # (Auto) 0.7 0-1.3 10 ^3/uL Eosinophils # (Auto) 0 0-0.8 10 ^3/uL Basophils # (Auto) 0.1 0-0.2 10 ^3/uL Nucleated Red Blood Cells 0.1 % Sodium Level 133 #L 136-145 mmol/L Potassium Level 4.6 3.5-5.1 mmol/L Chloride Level 101 98-107 mmol/L Carbon Dioxide Level 20 20-31 mmol/L Anion Gap 12 5-15 Blood Urea Nitrogen 29 H 9-23 mg/dL Creatinine 1.81 H 0.550-1.02 mg/dL Glomerular Filtration Rate Calc 30 >90 mL/min BUN/Creatinine Ratio 16.0 10.0-20.0 Serum Glucose 471 *H 74-106 mg/dL Calcium Level 8.6 L 8.7-10.4 mg/dL Urine Color Colorless Yellow Urine Clarity Clear Clear Urine pH 5.5 5.0-9.0 Urine Specific [place] 1.008 1.001-1.035 Urine Protein Negative Negative Urine Ketones Negative Negative Urine Blood Negative Negative /uL Urine Nitrite Negative Negative Urine Bilirubin Negative Negative Urine Urobilinogen Normal Negative mg/dL Urine Leukocyte Esterase Negative Negative /uL Urine RBC <1 0 - 4 /hpf Urine Microscopic WBC < 1 0-5 /HPF Urine Squamous Epithelial Cells None seen <5 /hpf Urine Bacteria None seen None Seen /hpf Urine Glucose Normal Normal mg/dL Test 02/13/25 12:59 Range/Units Prothrombin Time 9.7 9.3-11.8 sec Prothrombin Time INR 0.91 0.9-1.15 Activated Partial Thromboplast Time 25.9 24.5-34.5 SEC Total Bilirubin 0.2 0.2-1.0 mg/dL Aspartate Amino Transferase (AST) 16 13-40 U/L Alanine Aminotransferase (ALT) 13 7-40 U/L Alkaline Phosphatase 55 46-116 U/L Total Protein 7.3 5.7-8.2 g/dL Albumin 4.4 3.2-4.8 g/dL Assessment SEE DICTATED NOTE Plan discussed with: Patient, Daughter Date of Service: Feb 18, 2025 Billing Provider: YANN GOLDSTEIN MD Common Visit Codes: [id number] INP/OBS CARE (HIGH) YANN GOLDSTEIN MD Feb 18, 2025 10:47
[2025-02-18 10:51] LABS: Hepatitis B Surface Antigen Negative (Negative)
[2025-02-18 11:03] LABS: Hepatitis C Antibody Negative (Negative)
--- NOTE | 2025-02-18 11:49 | DVHINCON2 ---
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 The patient at this time denies any significant back pain. No chest pain, no shortness of breath, no nausea or vomiting. No fever or cough. REVIEW OF SYSTEMS: Review of rest of systems are otherwise currently negative. PAST MEDICAL HISTORY: Significant for diabetes, hypertension, hypothyroidism, and chronic kidney disease. MEDICATIONS: She takes Lantus insulin, regular insulin, glipizide, aspirin, losartan, levothyroxine, metformin, metoprolol, and Dyazide. ALLERGIES: No known drug allergies. SOCIAL HISTORY: Denies smoking or alcohol. Lives at home with her daughter. FAMILY HISTORY: Negative. PHYSICAL EXAMINATION: GENERAL: The patient is awake, alert. VITAL SIGNS: Temperature of 97.9, pulse 109 per minute, blood pressure 143/70. SHEENT: Unremarkable. NECK: There is no JVD. LUNGS: Lungs are equal bilaterally. No added sounds. CARDIOVASCULAR: No pedal edema. S1 and S2 is regular. There is tachycardia. ABDOMEN: Soft. There is no organomegaly. NEUROLOGIC: The patient is nonfocal. MUSCULOSKELETAL: There are drains at the site of the lumbar spine surgery. ASSESSMENT AND PLAN: * Diabetes mellitus, for which the patient will be continued on Lantus and sliding scale insulin. * Morbid obesity. * Hypertension for which she will continue on her home medication. * Hypothyroidism. * Anemia. * CKD stage 3B. 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 MD CYNDIE Qiu/ZACK TID: [id number] RECEIPT: [id number]
--- NOTE | 2025-02-18 17:03 | DVHSR ---
APPROVED REPORT EXAM: LIMITED Two-dimensional and M-mode echocardiogram with Doppler and color Doppler. Blood Pressure: 135/67 mmHg INDICATION HTN/DM RISK FACTORS Obesity: Height: 5' 4", Weight: 256 DIMENSIONS LVDd3.0 (3.8-5.7cm)LA (2D)3.9 (1.9-4.0cm)Aortic Root3.2 (2.0-3.7cm) LVDs2.1 (2.5-4.0cm)LA (MM) (1.9-4.0cm)Aortic Cusp Exc1.4 (1.5-2.0cm) EF (%) 57.0 (55-70%)Rt. Atrium4.4 (1.9-4.0cm)Asc. Aorta cm IVSd1.9 (0.7-1.1cm)RV (D) (1.8-2.4cm) PWd1.2 (0.7-1.1cm) Mitral Valve MitralMitral Stenosis E wave1.00m/sMV Mean GR.mmHg A wave1.10m/sMV Peak GR.mmHg E/A ratio0.92D MVAcm2 Aortic Valve Aortic ValveAortic Stenosis V11.40m/Abdirahman Mean GR.8mmHg V21.90m/Abdirahman Peak GR.15mmHg LVOT Diameter2.3 (1.8-2.4cm)Doppler AVA3.06cm2 Pulmonic Valve V21.10m/s Tricuspid Valve TR Velocity1.90m/s [id number] Other Information Quality : Technically LimitedRhythm : Technically limited study due to body habitus, patient had back surgery yesterday and can not turn o r move. Conclusion Technically limited study secondary to poor acoustic windows. Left ventricle: Mild concentric left ventricular hypertrophy was seen. LVEF was 55-60%. There was no gross wall motion abnormality. Diastolic function of left ventricle was considered normal Right ventricle was not well visualized. Right atrium was mildly dilated. Left atrium was normal-si zed. Aortic valve was not well visualized. There was no aortic insufficiency/stenosis. There was trace m itral/tricuspid regurgitation. Pulmonary valve was not well visualized. As there was no good tricuspid regurgitation jet, right ventricular systolic pressure could not be es timated. There was no echocardiographic evidence for pulmonary hypertension.
[2025-02-18] MEDS: MORPHINE SULFATE INJ 2 MG/ml SYRG IV PRN (21:42)
[2025-02-18] MEDS ORDERED: PHENYLEPHRINE HCL 10 MG/ML VL IV ONE (21:48)
[2025-02-18] MEDS: INSULIN LANTUS (GLARGINE) 1 /0.01ml (100units/ml) SC SCH (21:55)
[2025-02-18] MEDS ORDERED: INSULIN LANTUS (GLARGINE) 1 /0.01ml (100units/ml) SC SCH (22:00)
[2025-02-19] VITALS (8 sets, daily range): BP systolic 103–161; BP diastolic 62–91; PULSE 85–100; RESP 13–18; TEMP 97.3–98.6; O2SAT 94–97
[2025-02-19] MEDS: ONDANSETRON HCL 4 MG/2 ML VIAL IV PRN (01:12)
[2025-02-19] MEDS: LEVOTHYROXINE SODIUM 50 MCG TAB PO SCH (05:54)
[2025-02-19 05:57] LABS: Hematocrit 31.4 % (36.0-46.0); Hemoglobin 10.3 g/dL (12.2-16.2); Mean Corpuscular Hemoglobin 30.0 pg (28.0-32.0); Mean Corpuscular Volume 91.5 fL (80.0-100.0); Nucleated Red Blood Cells % 0.1 %
[2025-02-19 06:13] LABS: Alanine Aminotransferase 12 U/L (7-40); Alkaline Phosphatase 55 U/L (46-116); Anion Gap 12 (5-15); BUN/Creatinine Ratio 13.4 (10.0-20.0); Blood Urea Nitrogen 21 mg/dL (9-23); Calcium 9.2 mg/dL (8.7-10.4); Carbon Dioxide 20 mmol/L (20-31); Chloride 103 mmol/L (98-107); Potassium 4.3 mmol/L (3.5-5.1); Total Protein 6.7 g/dL (5.7-8.2)
[2025-02-19 06:14] LABS: Albumin 3.9 g/dL (3.2-4.8); Bilirubin, Total 0.2 mg/dL (0.2-1.0); Glucose 246 mg/dL (74-106); Sodium 135 mmol/L (136-145)
--- NOTE | 2025-02-19 07:58 | DVHPN2 ---
Progress Note - Dictate Date Seen: Feb 19, 2025 Medical Necessity Reason Pt with a Central, PICC or Fol: No vital signs Vital Sign Date Time Temp Pulse Resp B/P (MAP) Pulse Ox O2 Delivery O2 Flow Rate FiO2 02/19/25 05:00 98.5 90 17 161/75 (103) 95 98.5 02/18/25 20:00 Room Air* 0 21 Total Intake and Output 02/18/25 02/18/25 02/19/25 15:00 23:00 07:00 Intake Total 1000 ml 700 ml Output Total 100 ml Balance 900 ml 700 ml medications Current Medications Medications Dose Ordered Sig/Diann Route Start Time Stop Time Status Last Admin Dose Admin Ondansetron HCl 4 mg Q4HP PRN IV 02/17/25 16:15 02/19/25 01:12 4 MG Acetaminophen 650 mg Q6HP PRN PO 02/17/25 16:15 Acetaminophen/ Hydrocodone Bitart 1 tab Q6HP PRN PO 02/17/25 16:15 02/19/25 05:54 1 TAB Morphine Sulfate 1 mg Q4HP PRN IV 02/17/25 16:15 02/18/25 21:42 1 MG Cyclobenzaprine HCl 10 mg TID PO 02/17/25 22:00 02/19/25 05:54 10 MG Docusate Sodium 100 mg BID PO 02/17/25 22:00 02/18/25 21:38 100 MG Cefazolin Sodium 50 ml @ 100 mls/hr Q8HR IV 02/17/25 22:00 02/19/25 14:29 02/19/25 05:56 100 MLS/HR Nitroglycerin 0.4 mg Q5MINP PRN SL 02/17/25 16:15 Morphine Sulfate 2 mg Q30M PRN IV 02/17/25 16:15 Diagnostic Test (Pha) 1 strip IQ4HR 02/18/25 04:00 02/19/25 04:13 1 STRIP Insulin Human Regular IQ4HR SC 02/18/25 04:00 02/19/25 04:13 6 UNITS Dextrose 50 ml UD PRN IV 02/18/25 02:00 Hydralazine HCl 25 mg Q12HR PO 02/18/25 10:00 02/18/25 21:38 25 MG Losartan Potassium 50 mg DAILY PO 02/18/25 10:00 02/18/25 10:45 50 MG Metoprolol Succinate 100 mg DAILY PO 02/18/25 10:00 02/18/25 10:40 100 MG Famotidine 20 mg DAILY PO 02/18/25 10:00 02/18/25 10:41 20 MG Triamterene/HCTZ 2 cap DAILY PO 02/18/25 10:00 Levothyroxine Sodium 50 mcg QAM@0600 PO 02/19/25 06:00 02/19/25 05:54 50 MCG Insulin Glargine 40 units HS SC 02/18/25 22:00 laboratory and microbiology Laboratory Tests 02/19/25 05:30 Test 02/19/25 05:30 Range/Units Serum Glucose 246 H 74-106 mg/dL Assessment/Plan Patient is a 69-year-old female who came to hospital for elective lumbar laminectomy. Orthopedics has performed a laminectomy and the patient is being managed on tele floor. Cardiology is involved for cardiac aspects of care. Patient is known to our practice from outside and before. Not in acute distress. Lying flat in bed. No JVD. Obese. No carotid bruit. Mucosa is pink and wet. Not using accessory muscles of breathing. Lungs are clear to auscultation. Cardiac: Regular, no thrill/gallop. Abdomen is soft. There is no mass. Bowel sound is positive. Nontender. Extremities do not reveal edema. Dorsalis pedis is 2+ bilateral Past medical history includes obesity, diabetes mellitus, hypertension, hyperlipidemia, hypothyroidism, low back pain, osteopenia/osteoporosis, GERD, glaucoma, CKD (goes to Nephrology/Dr. De La Torre regularly) and history of left breast cancer in 1998 (status post chemotherapy/radiation therapy) Echocardiogram of January 2025 (performed in [facility]) was poor quality and left ventricular systolic function could not be completely evaluated. There was no aortic stenosis Echocardiogram of December 2023 (performed in the office) revealed preserved left ventricular systolic function and no valvular disease. Hemoglobin: 12.5 - 9.8 - 10.3 Creatinine: 1.8 - 1.81 - 1.57 Potassium: 4.7 - 4.6 - 4.3 TSH: 2.58 Echocardiogram revealed: Technically limited study secondary to poor acoustic windows. Left ventricle: Mild concentric left ventricular hypertrophy was seen. LVEF was 55-60%. There was no gross wall motion abnormality. Diastolic function of left ventricle was considered normal. Right ventricle was not well visualized. Right atrium was mildly dilated. Left atrium was normal-sized. Aortic valve was not well visualized. There was no aortic insufficiency/stenosis. There was trace mitral/tricuspid regurgitation. Pulmonary valve was not well visualized. As there was no good tricuspid regurgitation jet, right ventricular systolic pressure could not be estimated. There was no echocardiographic evidence for pulmonary hypertension. Patient is a obese female who presented for elective lumbar laminectomy (performed). Does have above comorbidities. Hemodynamically is stable. Does have baseline history of CKD for which follows with Nephrology regularly Status post lumbar laminectomy Diabetes mellitus Obesity, morbid Hypertension Hyperlipidemia CKD Hypothyroidism Lumbar stenosis Cardiac suggestion for management: Manage on tele Follow-up electrolytes and kidney function tests and correct abnormalities. DVT prophylaxis as per primary team and Orthopaedics Follow-up by Orthopedics Rehab evaluation and follow-up Further evaluation and management depends on the above and clinical course A total of 55 minutes was spent reviewing the patient record, examining the patient, making a diagnostic and therapeutic plan, discussing this plan with medical personnel, following up on diagnostic studies and following the patient for clinical stability excluding any and all procedures. At least 50% of this time was spent in direct, [id number] contact. Thank you for allowing me to participate in this patient's care. Further recommendations will depend on patient's clinical course. Please do not hesitate to contact me if you have any questions or concerns. This medical document was created using electronic medical record system with [employer] computerized dictation system. Although this document has been carefully reviewed, there may still be some phonetic and typographical errors. These areas are purely typographical due to the imperfection of the software programs, and do not reflect any compromise in the patient's medical care. Plan discussed with: Patient, Other (nurse) THOR HAMLIN MD Feb 19, 2025 07:58
--- NOTE | 2025-02-19 11:11 | DVHPN2 ---
Progress Note Date Seen: Feb 19, 2025 Medical Necessity Reason Pt with a Central, PICC or Fol: No Subjective Patient reports: No new complaints Review of Systems: HEENT:Normal, CVS:Normal, RESPIRATORY:Normal, GI:Normal, :Normal, MSK:Normal, NEURO:Normal Objective vital signs Vital Sign Date Time Temp Pulse Resp B/P (MAP) Pulse Ox O2 Delivery O2 Flow Rate FiO2 02/19/25 08:39 87 103/62 02/19/25 08:30 98.3 18 94 98.3 02/19/25 08:00 Room Air* 0 21 Total Intake and Output 02/18/25 02/18/25 02/19/25 15:00 23:00 07:00 Intake Total 1000 ml 700 ml Output Total 100 ml Balance 900 ml 700 ml medications Current Medications Medications Dose Ordered Sig/Diann Route Start Time Stop Time Status Last Admin Dose Admin Ondansetron HCl 4 mg Q4HP PRN IV 02/17/25 16:15 02/19/25 01:12 4 MG Acetaminophen 650 mg Q6HP PRN PO 02/17/25 16:15 Acetaminophen/ Hydrocodone Bitart 1 tab Q6HP PRN PO 02/17/25 16:15 02/19/25 05:54 1 TAB Morphine Sulfate 1 mg Q4HP PRN IV 02/17/25 16:15 02/18/25 21:42 1 MG Cyclobenzaprine HCl 10 mg TID PO 02/17/25 22:00 02/19/25 05:54 10 MG Docusate Sodium 100 mg BID PO 02/17/25 22:00 02/19/25 08:37 100 MG Cefazolin Sodium 50 ml @ 100 mls/hr Q8HR IV 02/17/25 22:00 02/19/25 14:29 02/19/25 05:56 100 MLS/HR Nitroglycerin 0.4 mg Q5MINP PRN SL 02/17/25 16:15 Morphine Sulfate 2 mg Q30M PRN IV 02/17/25 16:15 Diagnostic Test (Pha) 1 strip IQ4HR 02/18/25 04:00 02/19/25 08:44 1 STRIP Insulin Human Regular IQ4HR SC 02/18/25 04:00 02/19/25 08:41 15 UNITS Dextrose 50 ml UD PRN IV 02/18/25 02:00 Hydralazine HCl 25 mg Q12HR PO 02/18/25 10:00 02/19/25 08:39 25 MG Losartan Potassium 50 mg DAILY PO 02/18/25 10:00 02/19/25 08:38 50 MG Metoprolol Succinate 100 mg DAILY PO 02/18/25 10:00 02/19/25 08:39 100 MG Famotidine 20 mg DAILY PO 02/18/25 10:00 02/19/25 08:38 20 MG Triamterene/HCTZ 2 cap DAILY PO 02/18/25 10:00 02/19/25 08:37 2 CAP Levothyroxine Sodium 50 mcg QAM@0600 PO 02/19/25 06:00 02/19/25 05:54 50 MCG Insulin Glargine 40 units HS SC 02/18/25 22:00 Examination: GENERAL:Normal, HEENT:Normal, NECK:Normal, LUNGS:Normal, CVS:Normal, ABDOMEN:Normal, MSK:Normal, MSK:Abnormal (DRAINS+), SKIN:Normal, NEURO:Normal, :Normal laboratory and microbiology Laboratory Tests 02/19/25 05:30 Test 02/19/25 05:30 Range/Units Serum Glucose 246 H 74-106 mg/dL Problem List/Assessment/Plan Problem List/Assessment/Plan * Diabetes mellitus, for which the patient will be continued on Lantus and sliding scale insulin. * Morbid obesity. * Hypertension for which she will continue on her home medication. * Hypothyroidism. * Anemia. * CKD stage 3B. 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 advance care planning- full code- time spent 19 mins Plan discussed with: Patient, Daughter My Orders My Orders Orders - YANN GOLDSTEIN MD Procedure Category Date Status Time Glucose Blood PHA 02/19/25 Transmitted (Accu-Chek Comfort 11:30 Bedtime Insulin Scale PHA 02/19/25 Transmitted 22:00 Moderate Insulin Ss PHA 02/19/25 Transmitted 11:30 Dextrose 50% Syringe PHA 02/19/25 Transmitted 11:15 Basic Metabolic Panel LAB 02/20/25 Verified 06:00 Complete Blood Count LAB 02/20/25 Verified 06:00 Date of Service: Feb 19, 2025 Billing Provider: YANN GOLDSTEIN MD Common Visit Codes: [id number] INP/OBS CARE(HIGH) Secondary Visit Codes: [id number] CARE PLAN 30 MINUTES YANN GOLDSTEIN MD Feb 19, 2025 11:11
[2025-02-19] MEDS ORDERED: DEXTROSE (50%) 50ML SYRG IV PRN (11:15)
[2025-02-19] MEDS: InsuLIN REG 1unit/0.01ml Soln (100units/ml) SC SCH ×2 (11:30→21:40)
[2025-02-19] MEDS: ACCU-CHEK COMFORT CURVE STRIP VI SCH (11:30)
[2025-02-19] MEDS ORDERED: THROAT LOZENGES(CEPASTAT) MT PRN (15:15)
--- NOTE | 2025-02-19 20:21 | DVHPN2 ---
Progress Note - Surgical Date Seen: Feb 19, 2025 Post op day Post op day: 2 Subjective Patient reports: No new complaints, Feels better Review of Systems: MSK:Normal, NEURO:Normal (preop symptoms improving) Objective Vital signs Vital Sign Date Time Temp Pulse Resp B/P (MAP) Pulse Ox O2 Delivery O2 Flow Rate FiO2 02/19/25 16:57 97.3 85 18 143/73 (96) 95 97.3 02/19/25 08:00 Room Air* 0 21 Total Intake and Output 02/18/25 02/18/25 02/19/25 15:00 23:00 07:00 Intake Total 1000 ml 700 ml Output Total 100 ml Balance 900 ml 700 ml Medications Current Medications Medications Dose Ordered Sig/Diann Route Start Time Stop Time Status Last Admin Dose Admin Ondansetron HCl 4 mg Q4HP PRN IV 02/17/25 16:15 02/19/25 01:12 4 MG Acetaminophen 650 mg Q6HP PRN PO 02/17/25 16:15 Acetaminophen/ Hydrocodone Bitart 1 tab Q6HP PRN PO 02/17/25 16:15 02/19/25 18:40 1 TAB Morphine Sulfate 1 mg Q4HP PRN IV 02/17/25 16:15 02/18/25 21:42 1 MG Cyclobenzaprine HCl 10 mg TID PO 02/17/25 22:00 02/19/25 14:28 10 MG Docusate Sodium 100 mg BID PO 02/17/25 22:00 02/19/25 08:37 100 MG Nitroglycerin 0.4 mg Q5MINP PRN SL 02/17/25 16:15 Morphine Sulfate 2 mg Q30M PRN IV 02/17/25 16:15 Hydralazine HCl 25 mg Q12HR PO 02/18/25 10:00 02/19/25 08:39 25 MG Losartan Potassium 50 mg DAILY PO 02/18/25 10:00 02/19/25 08:38 50 MG Metoprolol Succinate 100 mg DAILY PO 02/18/25 10:00 02/19/25 08:39 100 MG Famotidine 20 mg DAILY PO 02/18/25 10:00 02/19/25 08:38 20 MG Triamterene/HCTZ 2 cap DAILY PO 02/18/25 10:00 02/19/25 08:37 2 CAP Levothyroxine Sodium 50 mcg QAM@0600 PO 02/19/25 06:00 02/19/25 05:54 50 MCG Insulin Glargine 40 units HS SC 02/18/25 22:00 Diagnostic Test (Pha) 1 strip ACHS 02/19/25 11:30 02/19/25 18:08 1 STRIP Insulin Human Regular HS SC 02/19/25 22:00 Insulin Human Regular AC SC 02/19/25 11:30 02/19/25 18:09 2 UNITS Dextrose 50 ml UD PRN IV 02/19/25 11:15 Throat Lozenges 1 jason Q2HP PRN MT 02/19/25 15:15 Laboratory Laboratory Tests 02/19/25 05:30 Test 02/19/25 05:30 Range/Units Serum Glucose 246 H 74-106 mg/dL Examination: GENERAL:Normal, HEENT:Normal, NECK:Normal, LUNGS:Normal, CVS:Normal, ABDOMEN:Normal, MSK:Normal, SKIN:Normal (TEOFILO intact, drain #1 intact), NEURO:Normal, :Normal Problem List/Assessment/Plan Assessment and Plan drain output 110 ml drain #1 Patient continues to be able to get up and ambulate with physical therapy out into the hallway with a walke Family member verbalize the patient looked more stable than she has ever in the past Patient has not had a bowel movement yet, patient is tolerating eating and drinking well Patient is experiencing expected postoperative pain to the low back well controlled with pain medication, oral minimal requirements for IV intervention We will keep the drain 1 in another day, drain 2 was removed Patient is progressing well POD # 2 -Disposition: -Pending -Discharge RX: Patient has already picked up postoperative medications -Follow up appointment: with Dr Taylor on prior scheduled appointment [id number] [facility] [address] [place] [id number] -Pain: - IV pain meds post op day 1, with PO supplementation, goal is to progress weaning off IV medications and control pain with PO only. morphine 1mg q 4 hours (PAIN 7-10) - P.O. analgesics:Tylenol 650MG (PAIN 1-3) [place] 10/325 mg (PAIN 4-6) - Muscle relaxers scheduled administration. This is a beneficial medications for the incisional pain as it is mostly related to muscle spasms. Flexeril 10 mg TID - Cepacol throat lozenges as needed for sore throat -Antibiotics Operative recommendations: -Postoperative dose:-Post operative antibiotics cefazolin 1 g IV piggyback every 8 hours x 48 hours total of 6 doses -DVT PPX: -Hold all chemical DVT/ blood thinners for 14 days postoperatively -use mechanical DVT PPX such as SCD's, ambulation -Activity: -Pending PT evaluation and patients progression -Sit at side of bed for meals -Goal: Ambulate independently and safely (may use assistive devices if needed) -Medical Therapy goals: -Afebrile- Patient may develop a expected post operative fever by day 2-3, this may not be accompanied with a elevation in WBC. if fever develops: Acetaminophen for fever. Albuterol nebulizer Tx every 12 hours for 24 hours to facilitate adequate lung expansion and prevent development of atelectasis. -Euglycemic: bloods sugars under 130mmol/L for optimal healing -Normotensive: Avoid events of hypertension. This helps to keep post operative healing intact and avoids destabilization of beneficial hemostatic coagulation. -Lumbar: -If patient is comfortable encouraged the patient to lay on their side to facilitate wound healing -Drains: -Hemovac drains: These will be to full compression unless otherwise ordered. Please record and document output AND characteristic of fluid present independently EVERY 6 hours more often as needed. if there in no output indicate this by documenting 0ml. If output is greater than 100 ml in one hour of kaleb blood call provider. These drains will be removed once the drainage is at a acceptable level (generally less than 100ml in 24 hours) -Teofilo dressing: This will stay in place and will be removed at the patients follow up visit. Nursing is to assess the seal and power source. The seal should be intact and the power source should have a green flashing light indicating it is functioning well. Batteries can last up to 14 days. If a leak develops the dressing edges can be reinforced with a Tegaderm dressing to reestablish intact seal. The Teofilo dressing is NOT a wound vac. This does not get changed, it does not need home health management. -Record output independently, drain 1. Is a deep drain and drain 2. Is a superficial drain. Wound drainage is described by type, color, amount, and odor. Drainage can be 1 Serous: Clear and thin, may be present in healing healthy wound. 2 Serosanguineous containing blood may also be present and healthy healing wound 3. Sanguinous primarily blood 4. Purulent this is thick, white, and pus like. It may be indicated to give of a infection and should constitute a call to the provider immediately with the plan that the sample should be cultured. -Khan: discontinued in OR -Dressings Take care not to disrupt the TEOFILO dressing seal. If there is a break in the seal it can be trouble shot with a Tegaderm dressing. -Dressing to Hemovac drains may be changed once the drains have been removed by the provider. -Bowel management: -Colace 100mg bid -Diet: -Clear liquid diet and advance as patient tolerates within dietary limitations ( example: diabetic, Cardiac) -Incentive Spirometer: -10 x hour while awake, RN please educate and observe repeat demonstration, have IS at bedside POD #1 -X-rays: - none indicated at this time -Consults: -Physical Therapy evaluation, treatment recommendations, and discharge recommendations Call with questions Inocencia Mir [facility]- Orthopaedic Spine Surgery nurse practitioner For Dr Alin Taylor Patient was examined, chart reviewed, labs evaluated, and diagnostic studies and findings analyzed. Case was discussed with Dr. Maximino Taylor who formulated the plan of care. This medical document was created using an electronic medical record system with [employer] dictation system. Although this document has been carefully reviewed, there might still be some phonetic and typographical errors. These areas are purely typographical due to imperfections of the software programs, and do not reflect any compromise in the patient's medical care. My Orders My Orders Orders - LUKASZ MIR NP Procedure Category Date Status Time Incentive Spirometry ORDERS 02/19/25 Transmitted 15:02 Throat Lozenges PHA 02/19/25 In Process (Cepastat Lozenges) 15:15 Plan discussed with Plan discussed with: Patient, Daughter, Other (bedside RN) Visit Coding Surgery Date of Service if different f: Feb 17, 2025 Billing Provider: LUKASZ MIR NP Surgery Visit Codes: NOT BILLABLE LUKASZ MIR NP Feb 19, 2025 20:21
[2025-02-20] VITALS (7 sets, daily range): BP systolic 111–161; BP diastolic 66–78; PULSE 77–99; RESP 17–20; TEMP 97.7–98.1; O2SAT 90–100
--- NOTE | 2025-02-20 06:55 | DVHPN2 ---
Progress Note - Dictate Date Seen: Feb 20, 2025 Medical Necessity Reason Pt with a Central, PICC or Fol: No vital signs Vital Sign Date Time Temp Pulse Resp B/P (MAP) Pulse Ox O2 Delivery O2 Flow Rate FiO2 02/20/25 05:12 141/70 (93) 02/20/25 05:00 98.1 92 17 93 98.1 02/19/25 20:00 Room Air* 0 21 Total Intake and Output 02/19/25 02/19/25 02/20/25 15:00 23:00 07:00 Intake Total 950 ml 450 ml Balance 950 ml 450 ml medications Current Medications Medications Dose Ordered Sig/Diann Route Start Time Stop Time Status Last Admin Dose Admin Ondansetron HCl 4 mg Q4HP PRN IV 02/17/25 16:15 02/19/25 01:12 4 MG Acetaminophen 650 mg Q6HP PRN PO 02/17/25 16:15 Acetaminophen/ Hydrocodone Bitart 1 tab Q6HP PRN PO 02/17/25 16:15 02/19/25 18:40 1 TAB Morphine Sulfate 1 mg Q4HP PRN IV 02/17/25 16:15 02/18/25 21:42 1 MG Cyclobenzaprine HCl 10 mg TID PO 02/17/25 22:00 02/20/25 06:20 10 MG Docusate Sodium 100 mg BID PO 02/17/25 22:00 02/19/25 21:32 100 MG Nitroglycerin 0.4 mg Q5MINP PRN SL 02/17/25 16:15 Morphine Sulfate 2 mg Q30M PRN IV 02/17/25 16:15 Hydralazine HCl 25 mg Q12HR PO 02/18/25 10:00 02/19/25 21:32 25 MG Losartan Potassium 50 mg DAILY PO 02/18/25 10:00 02/19/25 08:38 50 MG Metoprolol Succinate 100 mg DAILY PO 02/18/25 10:00 02/19/25 08:39 100 MG Famotidine 20 mg DAILY PO 02/18/25 10:00 02/19/25 08:38 20 MG Triamterene/HCTZ 2 cap DAILY PO 02/18/25 10:00 02/19/25 08:37 2 CAP Levothyroxine Sodium 50 mcg QAM@0600 PO 02/19/25 06:00 02/20/25 06:20 50 MCG Insulin Glargine 40 units HS SC 02/18/25 22:00 02/19/25 21:40 40 UNITS Diagnostic Test (Pha) 1 strip ACHS 02/19/25 11:30 02/20/25 06:30 1 STRIP Insulin Human Regular HS SC 02/19/25 22:00 02/19/25 21:40 6 UNITS Insulin Human Regular AC SC 02/19/25 11:30 02/20/25 06:21 6 UNITS Dextrose 50 ml UD PRN IV 02/19/25 11:15 Throat Lozenges 1 jason Q2HP PRN MT 02/19/25 15:15 laboratory and microbiology Test 02/20/25 05:40 Range/Units Serum Glucose Pending Assessment/Plan Patient is a 69-year-old female who came to hospital for elective lumbar laminectomy. Orthopedics has performed a laminectomy and the patient is being managed on tele floor. Cardiology is involved for cardiac aspects of care. Randal todeduardo is known to our practice from outside and before. Not in acute distress. Lying flat in bed. No JVD. Obese. No carotid bruit. Mucosa is pink and wet. Not using accessory muscles of breathing. Lungs are clear to auscultation. Cardiac: Regular, no thrill/gallop. Abdomen is soft. There is no mass. Bowel sound is positive. Nontender. Extremities do not reveal edema. Dorsalis pedis is 2+ bilateral Past medical history includes obesity, diabetes mellitus, hypertension, hyperlipidemia, hypothyroidism, low back pain, osteopenia/osteoporosis, GERD, glaucoma, CKD (goes to Nephrology/Dr. De La Torre regularly) and history of left breast cancer in 1998 (status post chemotherapy/radiation therapy) Echocardiogram of January 2025 (performed in [facility]) was poor quality and left ventricular systolic function could not be completely evaluated. There was no aortic stenosis Echocardiogram of December 2023 (performed in the office) revealed preserved left ventricular systolic function and no valvular disease. Hemoglobin: 12.5 - 9.8 - 10.3 - 9.7 Creatinine: 1.8 - 1.81 - 1.57 - 1.54 Potassium: 4.7 - 4.6 - 4.3 - 4.4 TSH: 2.58 Echocardiogram revealed: Technically limited study secondary to poor acoustic windows. Left ventricle: Mild concentric left ventricular hypertrophy was seen. LVEF was 55-60%. There was no gross wall motion abnormality. Diastolic function of left ventricle was considered normal. Right ventricle was not well visualized. Right atrium was mildly dilated. Left atrium was normal-sized. Aortic valve was not well visualized. There was no aortic insufficiency/stenosis. There was trace mitral/tricuspid regurgitation. Pulmonary valve was not well visualized. As there was no good tricuspid regurgitation jet, right ventricular systolic pressure could not be estimated. There was no echocardiographic evidence for pulmonary hypertension. Patient is a obese female who presented for elective lumbar laminectomy (performed). Does have above comorbidities. Hemodynamically is stable. Does have baseline history of CKD for which follows with Nephrology regularly Status post lumbar laminectomy Diabetes mellitus Obesity, morbid Hypertension Hyperlipidemia CKD Hypothyroidism Lumbar stenosis Cardiac suggestion for management: Manage on tele Follow-up electrolytes and kidney function tests and correct abnormalities. DVT prophylaxis as per primary team and Orthopaedics Follow-up by Orthopedics Rehab evaluation and follow-up Cardiac douglas, stable Further evaluation and management depends on the above and clinical course A total of 55 minutes was spent reviewing the patient record, examining the patient, making a diagnostic and therapeutic plan, discussing this plan with medical personnel, following up on diagnostic studies and following the patient for clinical stability excluding any and all procedures. At least 50% of this time was spent in direct, [id number] contact. Thank you for allowing me to participate in this patient's care. Further recommendations will depend on patient's clinical course. Please do not hesitate to contact me if you have any questions or concerns. This medical document was created using electronic medical record system with [employer] computerized dictation system. Although this document has been carefully reviewed, there may still be some phonetic and typographical errors. These areas are purely typographical due to the imperfection of the software programs, and do not reflect any compromise in the patient's medical care. Plan discussed with: Patient, Other (nurse) THOR AHMLIN MD Feb 20, 2025 06:55
[2025-02-20 07:33] LABS: Hematocrit 30.1 % (36.0-46.0); Hemoglobin 9.7 g/dL (12.2-16.2); Mean Corpuscular Hemoglobin 29.3 pg (28.0-32.0); Mean Corpuscular Volume 91.1 fL (80.0-100.0); Nucleated Red Blood Cells % 0.1 %
[2025-02-20 07:45] LABS: Chloride 105 mmol/L (98-107); Potassium 4.4 mmol/L (3.5-5.1); Sodium 137 mmol/L (136-145)
[2025-02-20 07:46] LABS: Anion Gap 8 (5-15); Carbon Dioxide 24 mmol/L (20-31)
[2025-02-20 07:47] LABS: Calcium 9.8 mg/dL (8.7-10.4)
[2025-02-20 07:52] LABS: BUN/Creatinine Ratio 14.3 (10.0-20.0); Blood Urea Nitrogen 22 mg/dL (9-23); Glucose 237 mg/dL (74-106)
--- NOTE | 2025-02-20 12:01 | DVHPN2 ---
Subjective The patient is seen and examined at bedside. No complaint today Reviewed: Care Plan, H&P, Labs, Medications, Previous Orders, Radiology Changes from previous H/P or p: No Changes Objective Vitals Vital Signs Date Time Temp Pulse Resp B/P (MAP) Pulse Ox O2 Delivery O2 Flow Rate FiO2 02/20/25 10:24 141/74 02/20/25 10:23 82 02/20/25 08:47 98.1 20 90 98.1 02/20/25 08:00 Room Air* 0 21 Intake/Output Intake and Output 02/20/25 07:00 Intake Total 1400 ml Balance 1400 ml Intake Oral 1400 ml # Voids 6 General Appearance: Alert, Oriented X3, Cooperative, No acute distress HEENT: Atraumatic, PERRLA, EOMI Neck: Supple Lungs: Clear to auscultation, Normal air movement Cardiovascular: Regular rate, Normal S1, Normal S2, No murmurs, Gallops, Rubs Abdomen: Normal bowel sounds, Soft, No tenderness Neuro: Cranial nerves 3-12 NL Psych/Mental Status: Mental status NL Medications Current Medications Medications Dose Ordered Sig/Diann Route Start Time Stop Time Status Last Admin Dose Admin Ondansetron HCl 4 mg Q4HP PRN IV 02/17/25 16:15 02/19/25 01:12 4 MG Acetaminophen 650 mg Q6HP PRN PO 02/17/25 16:15 Acetaminophen/ Hydrocodone Bitart 1 tab Q6HP PRN PO 02/17/25 16:15 02/19/25 18:40 1 TAB Morphine Sulfate 1 mg Q4HP PRN IV 02/17/25 16:15 02/18/25 21:42 1 MG Cyclobenzaprine HCl 10 mg TID PO 02/17/25 22:00 02/20/25 06:20 10 MG Docusate Sodium 100 mg BID PO 02/17/25 22:00 02/20/25 10:22 100 MG Nitroglycerin 0.4 mg Q5MINP PRN SL 02/17/25 16:15 Morphine Sulfate 2 mg Q30M PRN IV 02/17/25 16:15 Hydralazine HCl 25 mg Q12HR PO 02/18/25 10:00 02/20/25 10:23 25 MG Losartan Potassium 50 mg DAILY PO 02/18/25 10:00 02/20/25 10:24 50 MG Metoprolol Succinate 100 mg DAILY PO 02/18/25 10:00 02/20/25 10:23 100 MG Famotidine 20 mg DAILY PO 02/18/25 10:00 02/20/25 10:23 20 MG Triamterene/HCTZ 2 cap DAILY PO 02/18/25 10:00 02/20/25 10:21 2 CAP Levothyroxine Sodium 50 mcg QAM@0600 PO 02/19/25 06:00 02/20/25 06:20 50 MCG Insulin Glargine 40 units HS SC 02/18/25 22:00 02/19/25 21:40 40 UNITS Diagnostic Test (Pha) 1 strip ACHS 02/19/25 11:30 02/20/25 06:30 1 STRIP Insulin Human Regular HS CA 02/19/25 22:00 02/19/25 21:40 6 UNITS Insulin Human Regular AC CA 02/19/25 11:30 02/20/25 06:21 6 UNITS Dextrose 50 ml UD PRN IV 02/19/25 11:15 Throat Lozenges 1 jason Q2HP PRN MT 02/19/25 15:15 Laboratory Results Laboratory Tests 02/20/25 05:40 Chemistry Test 02/20/25 05:40 Calcium Level 9.8 mg/dL (8.7-10.4) Urinalysis Test 02/13/25 14:37 Urine Color Colorless (Yellow) Urine Clarity Clear (Clear) Urine pH 5.5 (5.0-9.0) Urine Specific [place] 1.008 (1.001-1.035) Urine Protein Negative (Negative) Urine Ketones Negative (Negative) Urine Blood Negative /uL (Negative) Urine Nitrite Negative (Negative) Urine Bilirubin Negative (Negative) Urine Urobilinogen Normal mg/dL (Negative) Urine Leukocyte Esterase Negative /uL (Negative) Urine RBC <1 /hpf (0 - 4) Urine Microscopic WBC < 1 /HPF (0-5) Urine Squamous Epithelial Cells None seen /hpf (<5) Urine Bacteria None seen /hpf (None Seen) Urine Glucose Normal mg/dL (Normal) Labs and/or images reviewed: Labs reviewed by me Assessment/Plan Assessment/Plan * Diabetes mellitus, for which the patient will be continued on Lantus and sliding scale insulin. * Morbid obesity. * Hypertension for which she will continue on her home medication. * Hypothyroidism. * Anemia. * CKD stage 3B. 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 Discharged home today per spine surgeon. I will requests DME including front wheel walker in 3-1 bedside commode with arm Plan discussed with: Patient, Daughter Date of Service: Feb 20, 2025 Billing Provider: OLI BROOKS MD Common Visit Codes: [id number] INP/OBS CARE(HIGH) OLI BROOKS MD Feb 20, 2025 12:01
--- NOTE | 2025-02-20 12:04 | DVHPN2 ---
Progress Note - Surgical Date Seen: Feb 20, 2025 Post op day Post op day: 3 Subjective Patient reports: No new complaints, Feels better Review of Systems: MSK:Normal, NEURO:Normal (continues to improve) Objective Vital signs Vital Sign Date Time Temp Pulse Resp B/P (MAP) Pulse Ox O2 Delivery O2 Flow Rate FiO2 02/20/25 10:24 141/74 02/20/25 10:23 82 02/20/25 08:47 98.1 20 90 98.1 02/20/25 08:00 Room Air* 0 21 Total Intake and Output 02/19/25 02/19/25 02/20/25 15:00 23:00 07:00 Intake Total 950 ml 450 ml Balance 950 ml 450 ml Medications Current Medications Medications Dose Ordered Sig/Diann Route Start Time Stop Time Status Last Admin Dose Admin Ondansetron HCl 4 mg Q4HP PRN IV 02/17/25 16:15 02/19/25 01:12 4 MG Acetaminophen 650 mg Q6HP PRN PO 02/17/25 16:15 Acetaminophen/ Hydrocodone Bitart 1 tab Q6HP PRN PO 02/17/25 16:15 02/19/25 18:40 1 TAB Morphine Sulfate 1 mg Q4HP PRN IV 02/17/25 16:15 02/18/25 21:42 1 MG Cyclobenzaprine HCl 10 mg TID PO 02/17/25 22:00 02/20/25 06:20 10 MG Docusate Sodium 100 mg BID PO 02/17/25 22:00 02/20/25 10:22 100 MG Nitroglycerin 0.4 mg Q5MINP PRN SL 02/17/25 16:15 Morphine Sulfate 2 mg Q30M PRN IV 02/17/25 16:15 Hydralazine HCl 25 mg Q12HR PO 02/18/25 10:00 02/20/25 10:23 25 MG Losartan Potassium 50 mg DAILY PO 02/18/25 10:00 02/20/25 10:24 50 MG Metoprolol Succinate 100 mg DAILY PO 02/18/25 10:00 02/20/25 10:23 100 MG Famotidine 20 mg DAILY PO 02/18/25 10:00 02/20/25 10:23 20 MG Triamterene/HCTZ 2 cap DAILY PO 02/18/25 10:00 02/20/25 10:21 2 CAP Levothyroxine Sodium 50 mcg QAM@0600 PO 02/19/25 06:00 02/20/25 06:20 50 MCG Insulin Glargine 40 units HS ME 02/18/25 22:00 02/19/25 21:40 40 UNITS Diagnostic Test (Pha) 1 strip ACHS 02/19/25 11:30 02/20/25 06:30 1 STRIP Insulin Human Regular HS ME 02/19/25 22:00 02/19/25 21:40 6 UNITS Insulin Human Regular AC SC 02/19/25 11:30 02/20/25 06:21 6 UNITS Dextrose 50 ml UD PRN IV 02/19/25 11:15 Throat Lozenges 1 jason Q2HP PRN MT 02/19/25 15:15 Laboratory Laboratory Tests 02/20/25 05:40 Test 02/20/25 05:40 Range/Units Serum Glucose 237 H 74-106 mg/dL Examination: GENERAL:Normal, HEENT:Normal, NECK:Normal, LUNGS:Normal, CVS:Normal, ABDOMEN:Normal, MSK:Normal, SKIN:Normal, NEURO:Normal, :Normal Problem List/Assessment/Plan Problems: (1) Muscle spasm of back (2) Acute post-operative pain Assessment and Plan drain output 50 ml drain #1 Patient continues to be able to get up and ambulate with physical therapy out into the hallway with a walker x 2 Patient up in chair Family member verbalize the patient looked more stable than she has ever in the past Patient has not had a bowel movement yet- she is passing gas, patient is tolerating eating and drinking well Patient is experiencing expected postoperative pain to the low back well controlled with pain medication- oral Patient is progressing well, family is comfortable with pt going home POD # 3 -Disposition: -home -Discharge RX: Patient has already picked up postoperative medications -Follow up appointment: with Dr Taylor on prior scheduled appointment [id number] [facility] [address] [place] [address] [place] [id number] -Pain: - IV pain meds post op day 1, with PO supplementation, goal is to progress weaning off IV medications and control pain with PO only. morphine 1mg q 4 hours (PAIN 7-10) - P.O. analgesics:Tylenol 650MG (PAIN 1-3) Endeavor 10/325 mg (PAIN 4-6) - Muscle relaxers scheduled administration. This is a beneficial medications for the incisional pain as it is mostly related to muscle spasms. Flexeril 10 mg TID - Cepacol throat lozenges as needed for sore throat -DVT PPX: -Hold all chemical DVT/ blood thinners for 14 days postoperatively -use mechanical DVT PPX such as SCD's, ambulation -Activity: -Patients progressing well -Sit at side of bed for meals -Goal: Ambulate independently and safely (may use assistive devices if needed) -Medical Therapy goals: -Afebrile- Patient may develop a expected post operative fever by day 2-3, this may not be accompanied with a elevation in WBC. if fever develops: Acetaminophen for fever. Albuterol nebulizer Tx every 12 hours for 24 hours to facilitate adequate lung expansion and prevent development of atelectasis. -Euglycemic: bloods sugars under 130mmol/L for optimal healing -Normotensive: Avoid events of hypertension. This helps to keep post operative healing intact and avoids destabilization of beneficial hemostatic coagulation. -Lumbar: -If patient is comfortable encouraged the patient to lay on their side to facilitate wound healing -Dressings Take care not to disrupt the TEOFILO dressing seal. If there is a break in the seal it can be trouble shot with a Tegaderm dressing. -Dressing to Hemovac drains site to be changed prior to DC. may be changed once the drains have been removed by the provider. -Bowel management: -Colace 100mg bid -Diet: -Tolerating well -Incentive Spirometer: -10 x hour while awake, RN please educate and observe repeat demonstration, have IS at bedside POD #1 -X-rays: - none indicated at this time -Consults: -Physical Therapy evaluation, treatment recommendations, and discharge recommendations Call with questions Inocencia Hickman ACNP- Orthopaedic Spine Surgery nurse practitioner For Dr Alin Taylor Patient was examined, chart reviewed, labs evaluated, and diagnostic studies and findings analyzed. Case was discussed with Dr. Maximino Taylor who formulated the plan of care. This medical document was created using an electronic medical record system with [employer] system. Although this document has been carefully reviewed, there might still be some phonetic and typographical errors. These areas are purely typographical due to imperfections of the software programs, and do not reflect any compromise in the patient's medical care. My Orders My Orders Orders - LUKASZ HICKMAN NP Procedure Category Date Status Time Incentive Spirometry ORDERS 02/19/25 Transmitted 15:02 Throat Lozenges PHA 02/19/25 In Process (Cepastat Lozenges) 15:15 Plan discussed with Plan discussed with: Patient, Other (Hui RN) Visit Coding Surgery Date of Service if different f: Feb 17, 2025 Billing Provider: LUKASZ HICKMAN NP Surgery Visit Codes: NOT BILLABLE LUKASZ HICKMAN NP Feb 20, 2025 12:04
[2025-02-20] MEDS ORDERED: DOCU-265 PO (17:25)
--- NOTE | 2025-02-20 17:40 | DVHDS2 ---
ASSESSMENT ASSESSMENT Hospital Course The patient arrived for a elective spine surgery with Dr. TAYLOR. Surgery went as planned with no complications. After a short stay in the PACU patient was admitted to the hospital for postoperative care and pain management over the course of 3 postoperative days the patient was able to tolerate a diet, ambulate independently, the pain has been managed with oral analgesics. The surgical site is well-approximated with sutures, some residual drainage continues from drain insertion sites after removal, however it is manageable with daily wound care and dressing changes. Some improvement to preoperative symptoms of extremities, strength and motion. There is new post operative pain that is localized to the surgical site. The patient will follow-up with Dr. Taylor for wound check and suture check. Colace has been prescribed to you, should be available at your pharmacy for pickup Assessment 1. 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 Severe Lumbar 3/4 central canal stenosis with low back pain and incapacitating neurogenic claudication 3. 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
--- NOTE | 2025-02-20 17:41 | DVHDS2 ---
Discharge Summary Date of Admission Feb 17, 2025 at 16:09 Date of Discharge: Feb 20, 2025 Admitting Diagnosis Lumbar stenosis Wounds: Midline lumbar incision, bob dressing intact power source intact seal intact. Closed with long subcuticular suture Drains have been removed to right-sided punctures are present healing well minimal drainage after drains removed Labs/Diagnostic Data: Laboratory Results Test 02/20/25 17:23 02/20/25 05:40 02/19/25 05:30 02/17/25 19:55 POC Glucose 286 mg/dl (70-106) White Blood Count 6.7 10^3/uL (4.4-10.8) Red Blood Count 3.30 10^6/uL (4.0-5.20) Hemoglobin 9.7 g/dL (12.2-16.2) Hematocrit 30.1 % (36.0-46.0) Mean Corpuscular Volume 91.1 fL (80.0-100.0) Mean Corpuscular Hemoglobin 29.3 pg (28.0-32.0) Mean Corpuscular Hemoglobin Concent 32.2 g/dL (32.0-36.0) Red Cell Distribution Width 14.6 % (11.8-14.3) Platelet Count 251 10^3/uL (140-450) Mean Platelet Volume 9.2 fL (6.9-10.8) Neutrophils (%) (Auto) 66.2 % (37.0-80.0) Lymphocytes (%) (Auto) 19.9 % (10.0-50.0) Monocytes (%) (Auto) 12.1 % (0.0-12.0) Eosinophils (%) (Auto) 1.3 % (0.0-7.0) Basophils (%) (Auto) 0.5 % (0.0-2.0) Neutrophils # (Auto) 4.5 10 ^3/uL (1.6-8.6) Lymphocytes # (Auto) 1.3 10 ^3/uL (0.4-5.4) Monocytes # (Auto) 0.8 10 ^3/uL (0-1.3) Eosinophils # (Auto) 0.1 10 ^3/uL (0-0.8) Basophils # (Auto) 0 10 ^3/uL (0-0.2) Nucleated Red Blood Cells 0.1 % Sodium Level 137 mmol/L (136-145) Potassium Level 4.4 mmol/L (3.5-5.1) Chloride Level 105 mmol/L (98-107) Carbon Dioxide Level 24 mmol/L (20-31) Anion Gap 8 (5-15) Blood Urea Nitrogen 22 mg/dL (9-23) Creatinine 1.54 mg/dL (0.550-1.02) Glomerular Filtration Rate Calc 36 mL/min (>90) BUN/Creatinine Ratio 14.3 (10.0-20.0) Serum Glucose 237 mg/dL (74-106) Calcium Level 9.8 mg/dL (8.7-10.4) Hemoglobin A1c 7.9 % A1C (<5.7) Total Bilirubin 0.2 mg/dL (0.2-1.0) Aspartate Amino Transferase (AST) 31 U/L (13-40) Alanine Aminotransferase (ALT) 12 U/L (7-40) Alkaline Phosphatase 55 U/L (46-116) Total Protein 6.7 g/dL (5.7-8.2) Albumin 3.9 g/dL (3.2-4.8) Thyroid Stimulating Hormone (TSH) 2.58 uIU/mL (0.55-4.78) Hepatitis B Surface Antigen Negative (Negative) Hepatitis C Antibody Negative (Negative) Test 02/13/25 14:37 02/13/25 12:59 Urine Color Colorless (Yellow) Urine Clarity Clear (Clear) Urine pH 5.5 (5.0-9.0) Urine Specific [place] 1.008 (1.001-1.035) Urine Protein Negative (Negative) Urine Ketones Negative (Negative) Urine Blood Negative /uL (Negative) Urine Nitrite Negative (Negative) Urine Bilirubin Negative (Negative) Urine Urobilinogen Normal mg/dL (Negative) Urine Leukocyte Esterase Negative /uL (Negative) Urine RBC <1 /hpf (0 - 4) Urine Microscopic WBC < 1 /HPF (0-5) Urine Squamous Epithelial Cells None seen /hpf (<5) Urine Bacteria None seen /hpf (None Seen) Urine Glucose Normal mg/dL (Normal) Prothrombin Time 9.7 sec (9.3-11.8) Prothrombin Time INR 0.91 (0.9-1.15) Activated Partial Thromboplast Time 25.9 SEC (24.5-34.5) Other Laboratory Tests 02/20/25 05:40 Brief Hx & Hospital Course: The patient arrived for a elective spine surgery with Dr. TAYLOR. Surgery went as planned with no complications. After a short stay in the PACU patient was admitted to the hospital for postoperative care and pain management over the course of 3 postoperative days the patient was able to tolerate a diet, ambulate independently, the pain has been managed with oral analgesics. The surgical site is well-approximated with sutures, some residual drainage continues from drain insertion sites after removal, however it is manageable with daily wound care and dressing changes. Some improvement to preoperative symptoms of extremities, strength and motion. There is new post operative pain that is localized to the surgical site. The patient will follow-up with Dr. Taylor for wound check and suture check. Colace has been prescribed to you, should be available at your pharmacy for pickup Operations or Procedures Revision lumbar 5 laminotomies/foraminotomies/facetectomies to decompress central canal and lumbar 5 nerve roots bilaterally Revision lumbar 4 laminotomies, foraminotomies/facetectomies to decompress central canal and lumbar 4 nerve roots bilaterally lumbar 3 laminectomy with foraminotomies and facetectomies to decompress central canal and bilateral lumbar 3 nerve roots Lumbar 3 to 4 posterior spinal interbody fusion with PEEK cage. Lumbar 3 to 4 posterior spinal intertransverse fusion with bone graft Lumbar 3 to 4 posterior spinal instrumentation with pedicle screws Autograft bone for fusion Allograft bone to augment fusion Demineralized bone matrix to augment fusion Microscope for microdissection Removal of Deep spinal hardware lumbar spine Exploration of prior lumbar fusion Condition at Discharge: Good Final Diagnosis/Problems List 1. 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 Severe Lumbar 3/4 central canal stenosis with low back pain and incapacitating neurogenic claudication 3. 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 Patient may shower when she gets home, front shower do not submerge bob dressing. Do not let bob dressing get saturated with water Follow Up/Referral: Keep your postoperative appointment with Dr Maximino Taylor Medications: Medications have been picked up from your preop appointment. Colace was added and we will be at your pharmacy New Medications: Docusate Sodium (Docusate Sodium) 100 Mg Cap 100 MG PO BID for 30 Days, #60 CAP Continued Medications: Aspirin (Aspirin Low Dose) 81 Mg Chw 1 TAB PO DAILY, #90 TAB 3 Refills Glipizide (Glipizide) 10 Mg Tab 1 TAB PO BID, #180 TAB 3 Refills Hydralazine Hcl (Hydralazine Hcl) 50 Mg Tab 25 MG PO BID, TAB Insulin Glargine (Lantus) 100 Unit/Ml Inj 100 UNIT SC DAILY, INJ Insulin Lispro (Human) (Humalog) 100 Unit/Ml Inj 100 UNIT SC BID, INJ Latanoprost (Latanoprost) 0.005 % Desirae 1 DROP EACHEYE QPM, #2.5 ML 3 Refills Levothyroxine Sodium (Synthroid Tablet) 50 Mcg Tb 75 MCG PO DAILY, TAB Losartan Potassium (Losartan Potassium) 50 Mg Tab 1 TAB PO DAILY, #90 TAB 3 Refills Metformin Hydrochloride (Metformin Hcl) 1,000 Mg Tab 1 TAB PO BID, #180 TAB 3 Refills Metoprolol Succinate (Metoprolol Succinate Er) 50 Mg Tab 100 MG PO DAILY, TAB Omeprazole (Gnp Omeprazole) 20 Mg Tab 1 TAB PO DAILY, #90 TAB 3 Refills Triamterene (Triamterene) 50 Mg Cap 50 MG PO DAILY, CAP Scheduled Aspirin (Aspirin Low Dose), 1 TAB PO DAILY, (Reported) Docusate Sodium (Docusate Sodium), 100 MG PO BID Glipizide (Glipizide), 1 TAB PO BID, (Reported) Hydralazine Hcl (Hydralazine Hcl), 25 MG PO BID, (Reported) Insulin Glargine (Lantus), 100 UNIT SC DAILY, (Reported) Insulin Lispro (Human) (Humalog), 100 UNIT SC BID, (Reported) Latanoprost (Latanoprost), 1 DROP EACHEYE QPM, (Reported) Levothyroxine Sodium (Synthroid Tablet), 75 MCG PO DAILY, (Reported) Losartan Potassium (Losartan Potassium), 1 TAB PO DAILY, (Reported) Metformin Hydrochloride (Metformin Hcl), 1 TAB PO BID, (Reported) Metoprolol Succinate (Metoprolol Succinate Er), 100 MG PO DAILY, (Reported) Omeprazole (Gnp Omeprazole), 1 TAB PO DAILY, (Reported) Triamterene (Triamterene), 50 MG PO DAILY, (Reported) Discharge Statement: "Patient was advised to return to the ER or call 911 if any headaches, dizziness, shortness of breath, chest pain, abdominal pain, bleeding, fevers, or worsening of medical condition. Patient was counseled about treatment plan, medications, possible side effects, patientverbalized understanding. All questions were answered to the best of my ability. This discharge took greater then 30 minutes in planning, reviewing documentation, counseling the patient, and discussing with other team members." ASSESSMENT ASSESSMENT Hospital Course The patient arrived for a elective spine surgery with Dr. TAYLOR. Surgery went as planned with no complications. After a short stay in the PACU patient was admitted to the hospital for postoperative care and pain management over the course of 3 postoperative days the patient was able to tolerate a diet, ambulate independently, the pain has been managed with oral analgesics. The surgical site is well-approximated with sutures, some residual drainage continues from drain insertion sites after removal, however it is manageable with daily wound care and dressing changes. Some improvement to preoperative symptoms of extremities, strength and motion. There is new post operative pain that is localized to the surgical site. The patient will follow-up with Dr. Taylor for wound check and suture check. 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
== END 2025-02-20 18:36 | disposition home or self-care (01) | DRG 402 ==
LOC: SUR 08:50 → OVERFLOW 16:09 → TELE-EAST 18:49
PROVIDERS: ADMIT Internal Medicine; ATTEND Internal Medicine
PROC: 0SG0071 Fusion of Lumbar Vertebral Joint with Autologous Tissue Substitute, Posterior Approach, Posterior Column, Open Approach (ICD-10-PCS; 2025-02-17)
PROC: 01NB0ZZ Release Lumbar Nerve, Open Approach (ICD-10-PCS; 2025-02-17)
PROC: 00NY0ZZ Release Lumbar Spinal Cord, Open Approach (ICD-10-PCS; 2025-02-17)
PROC: 0QP004Z Removal of Internal Fixation Device from Lumbar Vertebra, Open Approach (ICD-10-PCS; 2025-02-17)
PROC: 4A11X4G Monitoring of Peripheral Nervous Electrical Activity, Intraoperative, External Approach (ICD-10-PCS; 2025-02-17)
PROC: 0SG00AJ Fusion of Lumbar Vertebral Joint with Interbody Fusion Device, Posterior Approach, Anterior Column, Open Approach (ICD-10-PCS; principal; 2025-02-17 12:46)
DX: M48.062 Spinal stenosis, lumbar region with neurogenic claudication (principal); T84.84XA Pain due to internal orthopedic prosthetic devices, implants and grafts, initial encounter; Z68.41 Body mass index [BMI] 40.0-44.9, adult; E66.01 Morbid (severe) obesity due to excess calories; D64.9 Anemia, unspecified; N18.32 Chronic kidney disease, stage 3b; E03.9 Hypothyroidism, unspecified; M54.16 Radiculopathy, lumbar region; E11.22 Type 2 diabetes mellitus with diabetic chronic kidney disease; E78.5 Hyperlipidemia, unspecified; M81.0 Age-related osteoporosis without current pathological fracture; K21.9 Gastro-esophageal reflux disease without esophagitis; H40.9 Unspecified glaucoma; I08.1 Rheumatic disorders of both mitral and tricuspid valves; M96.1 Postlaminectomy syndrome, not elsewhere classified; I12.9 Hypertensive chronic kidney disease with stage 1 through stage 4 chronic kidney disease, or unspecified chronic kidney disease; T40.605A Adverse effect of unspecified narcotics, initial encounter; Z83.3 Family history of diabetes mellitus; Z82.5 Family history of asthma and other chronic lower respiratory diseases; Z85.3 Personal history of malignant neoplasm of breast; Z92.21 Personal history of antineoplastic chemotherapy; Z82.49 Family history of ischemic heart disease and other diseases of the circulatory system; Z79.84 Long term (current) use of oral hypoglycemic drugs; Z79.4 Long term (current) use of insulin; Z79.899 Other long term (current) drug therapy; Z98.1 Arthrodesis status; Y92.89 Other specified places as the place of occurrence of the external cause; Z79.891 Long term (current) use of opiate analgesic; Z79.82 Long term (current) use of aspirin; Y83.1 Surgical operation with implant of artificial internal device as the cause of abnormal reaction of the patient, or of later complication, without mention of misadventure at the time of the procedure; G89.18 Other acute postprocedural pain
CPT/HCPCS: 36415; 72100; 76000; 80048; 80053; 81001; 82962; 83036; 84443; 85025; 85610; 85730; 86803; 86850; 86900; 86901; 87340; 93306; 97110; 97116; 97163; A4344; G0378; J0330; J1815; J1956; J2250; J2405; J2704